=== PATIENT | male | born 1980 | race Caucasian/White ===

== ENCOUNTER 2022-06-29 19:57 | Inpatient (IN) | payer OTHER, MEDICAID, SELFPAY ==
[2022-06-29 20:24] VITALS: BP 141/91; PULSE 81; RESP 16; TEMP 37.1; O2SAT 97; BMI 37.3
[2022-06-29 21:00] LABS: Appearance Urine Clear; Color Urine Dark Yellow; Glucose Urine UA Negative (Negative); Leukocyte Esterase Urine Negative (Negative); Nitrite Urine Negative (Negative); PH 5.5 (5.0-9.0); Specific Gravity - Urine >= 1.030 (1.005-1.025); Urine Blood Negative (Negative); Urine Ketones Negative (Negative); Urine Protein Trace mg/dL (Neg-Trace)
[2022-06-29 21:10] LABS: Amphetamine Screen Urine Not Detected (Not Detect); Barbiturates, Urine Not Detected (Not Detect); Benzodiazepines Screen Urine Not Detected (Not Detect); Cannabinoid Screen Urine Not Detected (Not Detect); Cocaine Screen Urine Not Detected (Not Detect); Fentanyl, urine POSITIVE (Not Detect); Opiate Screen Urine Not Detected (Not Detect); Phencyclidine Screen Urine Not Detected (Not Detect)
[2022-06-29 21:15] LABS: COVID-19 Test Negative (Negative); IDNOW Serial# 55D5AD1C
--- NOTE | 2022-06-29 21:27 | ED.PSYCH ---
HPI - Psych General Chief Complaint: Psychiatric Symptoms Stated Complaint: drug use ?seeking rehab Time Seen by Provider: 06/29/22 20:50 Source: patient Mode of arrival: ambulatory Limitations: no limitations History of Present Illness HPI Narrative: 42-year-old male presents for psychiatric evaluation. Reports that he has been using large amounts of fentanyl, and feels like the next time he uses he is going to end his life. MD complaint: suicidal ideation, anxiety and substance abuse Onset (ago): month(s) Duration: constant History of same: Yes (First presentation to this facility) Relieving factors: none Exacerbating factors: drug use Context: recent drug abuse and significant life stressor Associated psychiatric symptoms: depression and suicidal ideation Treatments prior to arrival: none If self harm: admits thoughts of self harm and has plan Related Data Home Medications Medication Instructions Recorded Confirmed No Known Home Meds 06/29/22 06/29/22 Allergies Allergy/AdvReac Type Severity Reaction Status Date / Time No Known Allergies Allergy Verified 06/29/22 20:24 Review of Systems Review of Systems: Constitutional: No Fever, No Chills Cardiovascular: No Chest Pain, No SOB Respiratory: No Cough, No Sputum, No Dyspnea Gastrointestinal: No Nausea, No Vomiting, No Diarrhea Genitourinary: No Dysuria, No Urinary Frequency, No Hematuria Musculoskeletal: No Myalgias Skin: No Skin Lesions, No rash Neuro: No Weakness, No Numbness, No Paresthesias, No Dizziness, No Headache Psych: positive Anxiety, positive Depression, positive SI, positive substance abuse Heme/Lymph: No Lymphadenopathy Endocrine: No Polyuria, No Polydipsia Yes all other systems are reviewed and are negative [facility] Past Medical History Attestation statement: The following information was validated with the patient. Source: old records reviewed Social History Social History Advance Directives: No Advance Directives Information Provided: No Physical Exam Vital Signs: Vital Signs: Last Vital Signs Temp 98.8 F 06/29/22 20:24 Pulse 81 06/29/22 20:24 Resp 16 06/29/22 20:24 BP 141/91 H 06/29/22 20:24 Pulse Ox 97 06/29/22 20:24 O2 Del Method 06/29/22 20:24 BMI result Body Mass Index 37.3 Appearance: Alert. Oriented X3. Moderate emotional distress. Eyes: Pupils equal, round and reactive to light. Sclera nonicteric. Neck: Normal inspection. Neck supple. CVS: Normal heart rate and rhythm. Pulses normal. Respiratory: No respiratory distress. Breath sounds normal. Skin: Skin warm and dry. Normal skin color. Extremities: No lower extremity edema. Gait balance and coordinated. Neuro: No motor deficit. No sensory deficit. Cranial nerves 2-12 intact. Course Course Course Narrative: 42-year-old male presents for crisis evaluation for suicidal ideation with attempt to overdose on fentanyl. Over the past few months this patient has from his and children, has a job that requires him to travel, was on methadone but was in able to make it to the methadone clinics due to his occupation. Over the past 2 months he has been using fentanyl, and uses up to 2 g per day. He feels that his life situation is extraordinary softly stressful, he cannot manage his anxiety, states that he ?does not feel like a man?. Over the past 2 days, he has been living in a tent in shooting fentanyl, stating that he wishes he would . Patient feels that he is desperate, he is searching for help, he feels that if he were to use again that he would overdose. Will order labs, [facility], and place patient under section 12. 01:32 patient medically cleared. Order for Ativan for anxiety. Section 12, physician observation at this time. Medical Decision Making Differential Diagnosis Differential Diagnoses: The differential diagnosis associated with the presentation includes Suicidal, substance abuse, major depression Consult Healthcare Provider Management of the patient was discussed with: Behavioral Health Provider Lab Data MDM Lab Attestation statement: I reviewed the patient's lab results. 06/29/22 21:33 06/29/22 21:33 Labs: Lab Results 06/29/22 06/29/22 06/29/22 Range/Units 20:49 20:50 20:50 WBC (4.8-10.8) X10*3/uL RBC (4.60-5.80) X10*6/uL Hgb (14.0-18.0) g/dl Hct (42.0-52.0) % MCV (80.0-98.0) fL MCH (27.0-33.0) pg MCHC (31.0-36.0) g/dl RDW (11.0-16.0) % Plt Count (160-400) X10*3/uL MPV (9.4-12.4) fL Immature Gran % (Auto) (0.0-0.4) % Neut % (Auto) (45-73) % Lymph % (Auto) (20-40) % Sunflower % (Auto) (2-11) % Eos % (Auto) (0-4) % Baso % (Auto) (0-2) % Lymph # (Auto) (1.2-4.9) X10*3/uL Sunflower # (Auto) (0.1-1.2) X10*3/uL Eos # (Auto) (0.0-0.4) X10*3/uL Baso # (Auto) (0.0-0.2) X10*3/uL Abs Immat Gran (auto) (0.00-0.03) X10*3/uL Absolute Neuts (auto) (2.0-8.3) x10*3/uL Absolute Nucleated RBC (0.0-0.012) X10*3/uL Nucleated RBC % (auto) (0.0-0.2) /100WBC Sodium (135-145) mmol/L Potassium (3.3-5.1) mmol/L Chloride (96-108) mmol/L Carbon Dioxide (22-29) mmol/L Anion Gap (12-20) BUN (9-16) mg/dL Creatinine (0.5-1.4) mg/dL Estim Creat Clear Calc Estimated GFR Random Glucose (60-115) mg/dL Calcium (8.4-10.2) mg/dL Total Bilirubin (0.0-1.0) mg/dL AST (5-37) U/L ALT (0-40) U/L Alkaline Phosphatase (39-117) U/L Total Protein (6.5-8.0) g/dL Albumin (3.5-5.0) g/dL Urine Color Dark Yellow Urine Appearance Clear Urine pH 5.5 (5.0-9.0) Ur Specific [place] >= 1.030 H (1.005-1.025) Urine Protein Trace (Neg-Trace) mg/dL Urine Glucose (UA) Negative (Negative) mg/dL Urine Ketones Negative (Negative) mg/dL Urine Blood Negative (Negative) Urine Nitrite Negative (Negative) Ur Leukocyte Esterase Negative (Negative) Urine Opiates Screen Not Detected (Not Detect) Urine Fentanyl Screen POSITIVE H (Not Detect) Ur Barbiturates Screen Not Detected (Not Detect) Ur Phencyclidine Scrn Not Detected (Not Detect) Ur Amphetamines Screen Not Detected (Not Detect) U Benzodiazepines Scrn Not Detected (Not Detect) Urine Cocaine Screen Not Detected (Not Detect) U Marijuana (THC) Screen Not Detected (Not Detect) Ethyl Alcohol mg/dL COVID-19 ([facility]) Negative (Negative) COVID-19 Clin Com See Note 06/29/22 06/29/22 06/29/22 Range/Units 21:33 21:33 21:33 WBC 7.4 (4.8-10.8) X10*3/uL RBC 5.08 (4.60-5.80) X10*6/uL Hgb 14.3 (14.0-18.0) g/dl Hct 42.7 (42.0-52.0) % MCV 84.1 (80.0-98.0) fL MCH 28.1 (27.0-33.0) pg MCHC 33.5 (31.0-36.0) g/dl RDW 12.7 (11.0-16.0) % Plt Count 288 (160-400) X10*3/uL MPV 9.0 L (9.4-12.4) fL Immature Gran % (Auto) 0.1 (0.0-0.4) % Neut % (Auto) 64.8 (45-73) % Lymph % (Auto) 27.3 (20-40) % Sunflower % (Auto) 7.4 (2-11) % Eos % (Auto) 0.0 (0-4) % Baso % (Auto) 0.4 (0-2) % Lymph # (Auto) 2.0 (1.2-4.9) X10*3/uL Sunflower # (Auto) 0.6 (0.1-1.2) X10*3/uL Eos # (Auto) 0.0 (0.0-0.4) X10*3/uL Baso # (Auto) 0.0 (0.0-0.2) X10*3/uL Abs Immat Gran (auto) 0.01 (0.00-0.03) X10*3/uL Absolute Neuts (auto) 4.8 (2.0-8.3) x10*3/uL Absolute Nucleated RBC 0.000 (0.0-0.012) X10*3/uL Nucleated RBC % (auto) 0.0 (0.0-0.2) /100WBC Sodium 138 (135-145) mmol/L Potassium 3.9 (3.3-5.1) mmol/L Chloride 102 (96-108) mmol/L Carbon Dioxide 26 (22-29) mmol/L Anion Gap 14 (12-20) BUN 15 (9-16) mg/dL Creatinine 0.77 (0.5-1.4) mg/dL Estim Creat Clear Calc 159.3 Estimated GFR > 60 Random Glucose 132 H (60-115) mg/dL Calcium 9.2 (8.4-10.2) mg/dL Total Bilirubin 0.6 (0.0-1.0) mg/dL AST 33 (5-37) U/L ALT 33 (0-40) U/L Alkaline Phosphatase 105 (39-117) U/L Total Protein 7.0 (6.5-8.0) g/dL Albumin 4.4 (3.5-5.0) g/dL Urine Color Urine Appearance Urine pH (5.0-9.0) Ur Specific [place] (1.005-1.025) Urine Protein (Neg-Trace) mg/dL Urine Glucose (UA) (Negative) mg/dL Urine Ketones (Negative) mg/dL Urine Blood (Negative) Urine Nitrite (Negative) Ur Leukocyte Esterase (Negative) Urine Opiates Screen (Not Detect) Urine Fentanyl Screen (Not Detect) Ur Barbiturates Screen (Not Detect) Ur Phencyclidine Scrn (Not Detect) Ur Amphetamines Screen (Not Detect) U Benzodiazepines Scrn (Not Detect) Urine Cocaine Screen (Not Detect) U Marijuana (THC) Screen (Not Detect) Ethyl Alcohol < 10 mg/dL COVID-19 ([facility]) (Negative) COVID-19 Clin Com External Record Review Patient has no prior records at this facility Social Determinants Patient?s care significantly limited by Social Determinants of Health including: Other Social Determinant of Health Discharge Plan Discharge Clinical Impression: Fentanyl dependence, Depression, Suicidal intent Patient Disposition: Still a Patient Prescriptions: No Action No Known Home Meds
[2022-06-29 21:37] LABS: MANUAL DIFF FLAG NO
[2022-06-29 21:41] LABS: Basophils Percent Auto 0.4 % (0-2); Hematocrit 42.7 % (42.0-52.0); Hemoglobin 14.3 g/dl (14.0-18.0); Imm Gran Abs Auto 0.01 X10*3/uL (0.00-0.03); Imm Gran Pct Auto 0.1 % (0.0-0.4); Lymphocytes Percent Auto 27.3 % (20-40); Mean Corpuscular HGB Conc 33.5 g/dl (31.0-36.0); Mean Corpuscular Hemoglobin 28.1 pg (27.0-33.0); Mean Corpuscular Volume 84.1 fL (80.0-98.0); Monocytes Absolute Auto 0.6 X10*3/uL (0.1-1.2); Monocytes Percent Auto 7.4 % (2-11); Neutrophils Absolute Auto 4.8 x10*3/uL (2.0-8.3); Neutrophils Percent Auto 64.8 % (45-73); Platelet Count 288 X10*3/uL (160-400); Red Blood Count 5.08 X10*6/uL (4.60-5.80); Red Cell Distribution Width 12.7 % (11.0-16.0); White Blood Count 7.4 X10*3/uL (4.8-10.8)
[2022-06-29 22:03] LABS: Ethanol < 10 mg/dL
[2022-06-29 22:05] LABS: Alanine Aminotransferase 33 U/L (0-40); Albumin Level 4.4 g/dL (3.5-5.0); Alkaline Phosphatase 105 U/L (39-117); Anion Gap 14 (12-20); Aspartate Amino Transferase 33 U/L (5-37); Bilirubin Total 0.6 mg/dL (0.0-1.0); Blood Urea Nitrogen 15 mg/dL (9-16); Calcium 9.2 mg/dL (8.4-10.2); Carbon Dioxide 26 mmol/L (22-29); Chloride 102 mmol/L (96-108); Creatinine Clr Calc Pharmacy 159.3; Estimated Glomerular Filt Rate > 60; Glucose Random 132 mg/dL (60-115); Potassium 3.9 mmol/L (3.3-5.1); Sodium 138 mmol/L (135-145)
--- NOTE | 2022-06-30 05:34 | PC.NURSE ---
Patient slept through the night, no distress observed/reported, medication rec completed/patient is currently not on any home medication, behavior non concerning, care consult ordered/pending evaluation, VSS, will continue to monitor.
[2022-06-30 06:35] VITALS: BP 133/85; PULSE 82; RESP 17; TEMP 36.9; O2SAT 96
--- NOTE | 2022-06-30 07:29 | MHC.CARE ---
patient seen by Care team at 7am, he is an inpatient bed search. Agreeable/ voluntary for this LOC.
[2022-06-30] MEDS: LORazepam 1 MG TABLET PO (08:47)
[2022-06-30] MEDS: Ondansetron ODT 4 MG TAB.RAPDIS TRANSLINGU ×3 (08:47→22:30)
--- NOTE | 2022-06-30 09:00 | PC.NURSE ---
pt a+o x4, denies pain. pt requested meds for withdrawal symptoms. meds given as documented.
[2022-06-30] MEDS: LORazepam 1 MG TABLET 2 MG PO ×2 (16:58→22:30)
--- NOTE | 2022-06-30 17:01 | PC.NURSE ---
pt c/o nausea and bone pain, he denies any other symptoms of withdrawal. no signs of withdrawal observed. meds given as documented. pt sleeping most of shift. no other complaints.
--- NOTE | 2022-06-30 22:37 | PC.NURSE ---
Patient is awake, alert and oriented x3. VSS. Patient complains of nausea and generalized bone pain, no other signs and symptoms of withdrawal noted. Patient requesting to be medicated for nausea and pain. Dr. Felix notified, per MD MITCHELL to medicated patient with Zofran and Lorazepam 20 min earlier scheduled dose.
[2022-06-30 22:47] VITALS: BP 137/84; PULSE 96; RESP 18; TEMP 36.8; O2SAT 94
--- NOTE | 2022-07-01 | ECG_ITS ---
Test Reason : QTC CHECK Blood Pressure : / mmHG Vent. Rate : 092 BPM Atrial Rate : 092 BPM P-R Int : 146 ms QRS Dur : 100 ms QT Int : 366 ms P-R-T Axes : 023 -21 008 degrees QTc Int : 452 ms Normal sinus rhythm Normal ECG No previous ECGs available Referred By: Luz Mcwilliams Electronically Signed By:PACHECO HAYES
--- NOTE | 2022-07-01 00:33 | PC.NURSE ---
Patient continues to c/o bone pain and restless feeling, unable to keep his eyes closed and relax. Matt Cameron ED provider notified, verbal order obtained for Zyprexa 10 mg PO once.
[2022-07-01] MEDS: OLANZapine 10 MG TABLET PO (00:37)
[2022-07-01 00:40] VITALS: BP 137/87; PULSE 97; RESP 17; TEMP 36.4; O2SAT 96
[2022-07-01] MEDS: methADONE HCl 20 MG/2 ML ORAL.CONC 30 MG PO (01:23)
--- NOTE | 2022-07-01 07:31 | PC.NURSE ---
Patient sleeping no distress noted remains watch for safety.
[2022-07-01] MEDS: LORazepam 1 MG TABLET 2 MG PO ×3 (10:30→22:10)
--- NOTE | 2022-07-01 10:51 | PC.NURSE ---
Patient showering will CTM
[2022-07-01 13:52] VITALS: BP 115/74; PULSE 105; RESP 18; TEMP 37.1; O2SAT 98
--- NOTE | 2022-07-01 13:58 | PC.NURSE ---
Report to Chelsea collins RN
--- NOTE | 2022-07-01 15:14 | PHA.MEDREC ---
Pharmacy Consult ? Medication Reconciliation Pharmacy has completed the medication reconciliation. Pharmacy has reviewed med rec done by [facility]
[2022-07-01 16:00] VITALS: PULSE 98
[2022-07-01] MEDS: Acetaminophen 325 MG TABLET 650 MG PO (17:22)
[2022-07-01] MEDS: Ondansetron ODT 4 MG TAB.RAPDIS TRANSLINGU (17:22)
[2022-07-01 18:00] VITALS: BP 110/64; PULSE 98; TEMP 37.1; O2SAT 98
--- NOTE | 2022-07-01 19:08 | PC.ADMIT ---
pt is a 42 year old male who presented to the ED with SI due to wanting to overdose with fentanyl. pt had a positive tox screen for fentanyl. during admission, pt report withdrawal symptoms including nausea, rigors, sweating, body aches and nose dripping. pt was able to finish admission and got withdrawal meds including lorazepam, tylenol and zofran for nausea. pt is currently sleeping and he wants an addiction consult. start treatment plan and promote safety
--- NOTE | 2022-07-01 19:13 | PC.NURSE ---
pt refused nicotine replacement and says he didn't need it. pt was informed he can change his choice if he needs it.
[2022-07-01] MEDS: traZODone HCL 50 MG TABLET PO (22:10)
[2022-07-01] MEDS: cloNIDine HCL 0.1 MG TABLET PO (22:10)
[2022-07-02 08:20] VITALS: BP 118/78; PULSE 94; RESP 17; TEMP 36.7; O2SAT 97
[2022-07-02 08:22] VITALS: PULSE 94
[2022-07-02 09:13] LABS: Estimated Average Glucose 120 mg/dL; Hemoglobin A1c % 5.8 %
[2022-07-02 09:46] LABS: Cholesterol 196 mg/dL; HDL Cholesterol 29 mg/dL; LDL Cholesterol Calculated 135 mg/dl; Magnesium 2.2 mg/dL (1.6-2.6); Triglycerides 162 mg/dL
[2022-07-02 10:08] LABS: Folate 16.7 ng/mL (> or = 4.0); Free T4 (Free Thyroxine) 0.81 ng/dL (0.71-1.85); Thyroid Stimulating Hormone 1.06 uIU/mL (0.32-4.0); Vitamin B12 473 pg/mL (200-900)
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
[2022-07-02] MEDS: methADONE HCl 20 MG/2 ML ORAL.CONC 40 MG PO (10:39)
--- NOTE | 2022-07-02 14:58 | HO.ADDICT_ITS ---
History of Present Illness Date of Service: 07/02/2022 Chief Complaint: major depression w SI; Opiate use disorder Reason for Consult: fentanyl use HPI Narrative: Patient is a 42 year old male currently admitted to unit with suicidal id eation. Patient reports he has been staying in a tent for some time and using fentanyl daily. He is from [place], but reports he came up here about 2 weeks ago to use drugs. He received methadone 30mg while in ED, and 40mg was ordered today to address COWS score of 15. Patient seen by this video games storywriter following methadone administration. He was laying in bed, curled up under blanket. Frequently shifting during interview. He reports he was previously engaged with [facility] in [place] and dose was 120mg. Due to work demands, he was unable to make it to the clinic daily--unclear when his last dose was. Discussed methadone dosing and patients goals regarding continuation of medication--patient somewhat hesitant to continue titrating dose-- my head is a mess, I can't think straight . He is reporting continued withdrawal sx, including anxiety, joint pain, restlessness. Encouraged patient to address withdrawal sx in order to be able to address significant depression that brought his to [facility]--then plan could be developed regarding continuation or taper of methadone. Patient agreeable. Review of Systems Constitutional: Reports as per HPI, Reports body ache(s), Reports difficulty sleeping and Reports malaise Diagnostics Vital Signs (24Hr): Vital Signs - 24 hr 07/01/22 18:00 07/02/22 08:20 Temperature 98.8 F 98.0 F Pulse Rate 98 94 Respiratory Rate 17 Blood Pressure 110/64 118/78 Pulse Oximetry 98 97 Oxygen Delivery Method Room Air Room Air BMI result Body Mass Index 37.3 Labs 06/29/22 21:33 06/29/22 21:33 Labs: Laboratory Results - last 48 hr 07/02/22 07/02/22 08:16 08:16 Estimat Average Glucose 120 Hemoglobin A1c % 5.8 Magnesium 2.2 Triglycerides 162 Cholesterol 196 LDL Cholesterol, Calc 135 HDL Cholesterol 29 Vitamin B12 473 Folate 16.7 TSH 1.06 Free T4 0.81 Mental Status Exam Mental Status Exam Patient Appearance: Disheveled Level of Consciousness: Awake and Appropriate Affect Description: Anxious Speech Pattern: Clear Medications Medications Current Medications Acetaminophen (Acetaminophen 325 Mg Tablet) 650 mg PO Q6H PRN PRN Reason: Headache/Pain Mild Scale (1-3) Last Admin: 07/01/22 17:22 Dose: 650 mg Al Hydroxide/Mg Hydroxide (Magnesium Hydrox/Alum Hydrox 30 Ml Oral.Susp) 30 ml PO Q6H PRN PRN Reason: Heartburn/Nausea Clonidine HCl (Clonidine Hcl 0.1 Mg Tablet) 0.1 mg PO TID PRN; Protocol PRN Reason: withdrawal Last Admin: 07/01/22 22:10 Dose: 0.1 mg Hydroxyzine HCl (Hydroxyzine Hcl 25 Mg Tablet) 25 mg PO Q6H PRN PRN Reason: Anxiety Lorazepam (Lorazepam 1 Mg Tablet) 2 mg PO Q6H PRN PRN Reason: anxiety/restlessness Last Admin: 07/01/22 22:10 Dose: 2 mg Magnesium Hydroxide (Milk Of Magnesia 30 Ml Oral.Susp) 30 ml PO DAILY PRN PRN Reason: Constipation Methadone HCl (Methadone Hcl 20 Mg/2 Ml Oral.Conc) 50 mg PO DAILY DAKSHA Ondansetron HCl (Ondansetron Odt 4 Mg Tab.Rapdis) 4 mg TRANSLINGU Q6H PRN PRN Reason: nausea/vomiting Last Admin: 07/01/22 17:22 Dose: 4 mg Trazodone HCl (Trazodone Hcl 50 Mg Tablet) 50 mg PO BEDTIME MRX1 PRN PRN Reason: Insomnia Last Admin: 07/01/22 22:10 Dose: 50 mg Allergies Allergies Allergy/AdvReac Type Severity Reaction Status Date / Time No Known Allergies Allergy Verified 06/29/22 20:24 Assessment & Plan Assessment & Plan (1) Opioid use disorder: Status: Acute Code(s): F11.90 - Opioid use, unspecified, uncomplicated Assessment and Plan: * continue methadone titration--50mg ordered for 07/03 * offer comfort medications * nicotine patch ordered as patient reported smoking more than one pack daily * HIV and hepatitis screening * will continue to follow and obtain additional substance use and treatment history once patient is feeling better. Total time managing care of this patient today __35__ minutes. [facility] Social History Social History Housing: Homeless Patient Tobacco Use Status: Current everyday Tobacco user Tobacco use type: Cigarette Cigarettes Per Day: 6 Years Smoked: 10 Smoked in Last 30 Days: Yes Patient Interested in Nicotine Replacement: No (pt is not interested in replacement) Patient Given Instructions on How to Stop Smoking: Yes Date Education Initiated: 07/01/22 Second Hand Smoke Exposure: No Use of substances other than those prescribed or required for medical reasons: Yes Substance Use Type: Opiates Substance Use Frequency: Chronic Longstanding Last Used Substance: Just Prior to Admission Currently Displaying Signs/Symptoms of Drug Intoxication Withdrawal: Yes Any prior treatment program specific to substance use: No Have you been hit, kicked, punched, or otherwise hurt by someone within the past year? If so, by whom?: No Do you feel safe in your current relationship?: No Current Relationship Is there a partner from a previous relationship who is making you feel unsafe now?: No Are you made to feel afraid or neglected: No Advance Directives: No Advance Directives Information Provided: No Healthcare Proxy: No Guardian: No Do you have thoughts of harming others: None Do you have a plan to hurt others: No Plan Recently lost weight without trying: No How much weight loss: Not applicable Eating poorly because of decreased appetite: No Nutrition screen score: 0 Poor oral hygiene: No
[2022-07-02 16:00] VITALS: PULSE 86
[2022-07-02] MEDS: Nicotine 21 MG PATCH.TD24 TRANSDERMA (16:03)
[2022-07-02] MEDS: FLUoxetine HCl 10 MG CAPSULE PO (16:04)
[2022-07-02] MEDS: Acetaminophen 325 MG TABLET 650 MG PO (17:13)
[2022-07-02 18:00] VITALS: BP 114/68; PULSE 86; TEMP 36.7; O2SAT 99
[2022-07-02] MEDS: cloNIDine HCL 0.1 MG TABLET PO (19:59)
[2022-07-02] MEDS: traZODone HCL 50 MG TABLET PO (19:59)
[2022-07-02] MEDS: hydrOXYzine HCL 25 MG TABLET PO (19:59)
[2022-07-03] VITALS: PULSE 78
[2022-07-03] MEDS: cloNIDine HCL 0.1 MG TABLET PO (04:15)
[2022-07-03 04:20] VITALS: BP 105/60; PULSE 78; RESP 16
[2022-07-03] MEDS: FLUoxetine HCl 10 MG CAPSULE PO (08:42)
[2022-07-03] MEDS: methADONE HCl 20 MG/2 ML ORAL.CONC 50 MG PO (08:42)
[2022-07-03] MEDS: Nicotine 21 MG PATCH.TD24 TRANSDERMA (08:43)
[2022-07-03] MEDS: hydrOXYzine HCL 25 MG TABLET PO ×2 (08:49→18:59)
[2022-07-03 09:07] VITALS: BP 128/94; PULSE 91; RESP 18; TEMP 37.1; O2SAT 98
[2022-07-03 09:08] VITALS: PULSE 91
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
--- NOTE | 2022-07-03 16:02 | P.PNADD_ITS ---
Subjective Subjective Date of Service: 07/03/22 Reason For Visit: major depression w SI; Opiate use disorder Interim History: Patient seen in follow up Out of bed, showered and reporting improvement in withdrawal sx. Still c/o body aches and chills. Discussed OUD treatment history and patient reports that he had been in recovery for about 4 years while consistently taking methadone. His dose was 135mg QD. He states that about 2 months ago, he started to take Kratom as a way to taper off of methadone due to challenges with getting there daily. Unclear how, but at some point he began using fentanyl and then use increased. His last dose at the [facility] (per his report) was about a month ago 30mg. He would like to continue titrating dose and acknowledged that methadone was instrumental in his recovery previously. Review of Systems Constitutional: Reports as per HPI Mental Status Exam Mental Status Exam Patient Appearance: Well Grooomed and Appropriate Patient Orientation: Person, Place, Time and Situation Level of Consciousness: Awake, Appropriate and Alert Patient Behavior: Appropriate and Cooperative Mood Description: Calm and Appropriate Diagnostics Vital Signs (24Hr): Vital Signs - 24 hr 07/02/22 18:00 07/03/22 04:20 07/03/22 09:07 Temperature 98.1 F 98.8 F Pulse Rate 86 78 91 Respiratory Rate 16 18 Blood Pressure 114/68 105/60 128/94 H Pulse Oximetry 99 98 Oxygen Delivery Method Room Air Room Air BMI result Body Mass Index 37.3 Labs 06/29/22 21:33 06/29/22 21:33 Labs: Laboratory Results - last 48 hr 07/02/22 07/02/22 08:16 08:16 Estimat Average Glucose 120 Hemoglobin A1c % 5.8 Magnesium 2.2 Triglycerides 162 Cholesterol 196 LDL Cholesterol, Calc 135 HDL Cholesterol 29 Vitamin B12 473 Folate 16.7 TSH 1.06 Free T4 0.81 Medications Medications Current Medications Acetaminophen (Acetaminophen 325 Mg Tablet) 650 mg PO Q6H PRN PRN Reason: Headache/Pain Mild Scale (1-3) Last Admin: 07/02/22 17:13 Dose: 650 mg Al Hydroxide/Mg Hydroxide (Magnesium Hydrox/Alum Hydrox 30 Ml Oral.Susp) 30 ml PO Q6H PRN PRN Reason: Heartburn/Nausea Clonidine HCl (Clonidine Hcl 0.1 Mg Tablet) 0.1 mg PO QID PRN; Protocol PRN Reason: anxiety/insomnia Cyclobenzaprine HCl (Cyclobenzaprine Hcl 10 Mg Tablet) 10 mg PO TID PRN PRN Reason: muscle aches Dicyclomine HCl (Dicyclomine Hcl 10 Mg Capsule) 10 mg PO Q6H PRN PRN Reason: stomach cramps Fluoxetine HCl (Fluoxetine Hcl 10 Mg Capsule) 10 mg PO DAILY [facility] Last Admin: 07/03/22 08:42 Dose: 10 mg Hydroxyzine HCl (Hydroxyzine Hcl 25 Mg Tablet) 25 mg PO Q6H PRN PRN Reason: Anxiety Last Admin: 07/03/22 08:49 Dose: 25 mg Magnesium Hydroxide (Milk Of Magnesia 30 Ml Oral.Susp) 30 ml PO DAILY PRN PRN Reason: Constipation Methadone HCl (Methadone Hcl 20 Mg/2 Ml Oral.Conc) 60 mg PO DAILY [facility] Nicotine (Nicotine 21 Mg Patch.Td24) 21 mg TRANSDERMA DAILY [facility] Last Admin: 07/03/22 08:43 Dose: 21 mg Ondansetron HCl (Ondansetron Odt 4 Mg Tab.Rapdis) 4 mg TRANSLINGU Q6H PRN PRN Reason: nausea/vomiting Last Admin: 07/01/22 17:22 Dose: 4 mg Trazodone HCl (Trazodone Hcl 50 Mg Tablet) 50 mg PO BEDTIME MRX1 PRN PRN Reason: Insomnia Last Admin: 07/02/22 19:59 Dose: 50 mg Allergies Allergies Allergy/AdvReac Type Severity Reaction Status Date / Time No Known Allergies Allergy Verified 06/29/22 20:24 Assessment & Plan Assessment & Plan (1) Opioid use disorder: Status: Acute Code(s): F11.90 - Opioid use, unspecified, uncomplicated Assessment and Plan: * reminded to utilize PRN comfort medications * methadone increased to 60mg tomorrow AM (07/04) Total time managing care of this patient today _25___ minutes.
[2022-07-03 18:55] VITALS: BP 132/73; PULSE 91; TEMP 35.9; O2SAT 99
[2022-07-04 03:10] VITALS: BP 106/68; PULSE 68; RESP 14; TEMP 36.6
[2022-07-04] MEDS: cloNIDine HCL 0.1 MG TABLET PO ×3 (03:13→20:09)
[2022-07-04 08:00] VITALS: PULSE 82
[2022-07-04] MEDS: Nicotine 21 MG PATCH.TD24 TRANSDERMA (08:55)
[2022-07-04] MEDS: methADONE HCl 20 MG/2 ML ORAL.CONC 60 MG PO (08:56)
[2022-07-04] MEDS: FLUoxetine HCl 10 MG CAPSULE PO (08:56)
[2022-07-04 09:01] VITALS: BP 119/68; PULSE 82; RESP 18; TEMP 36.1; O2SAT 99; BMI 34.4
--- NOTE | 2022-07-04 12:20 | HO.PSYCHPN ---
Subjective Subjective Date of Service: 07/04/22 Reason For Visit: major depression w SI; Opiate use disorder Interim History: Met with patient; discussed with team; met again later with social science manager still depressed but a little better; some passive SI but not active; worries about relapse. Still some w/drawal but not as bad; agrees to scheduling clonidine. Discussed dispo and pt is determined to stay in [place], hopefully to go to a [facility]. Mental Status Exam Mental Status Exam Narrative: Pt is alert and oriented; behavior is cooperative, calm; patient is not in distress; dressed in casual attire, clean shaven, adequate hygiene; tatooed arms; mood is described as depressed...little better and affect congruent, more engaged; eye contact appropriate; Speech is normal rate, volume and prosody and not pressured; no psychomotor retardation present; thought process is organized and goal directed; Thought content is more hopeful, worried about relapse; tx; otherwise pertinent to relevant topics and without any delusional content, paranoid ideations or grandiosity; passive SI; no HI. There is no evidence of perceptual disturbance; denies AVH. Patients insight and judgment are fair. Diagnostics Vital Signs (24Hr): Vital Signs - 24 hr 07/03/22 18:55 07/04/22 03:10 07/04/22 09:01 Temperature 96.7 F L 98 F 97 F Pulse Rate 91 68 82 Respiratory Rate 14 18 Blood Pressure 132/73 106/68 119/68 Pulse Oximetry 99 99 Oxygen Delivery Method Room Air Room Air BMI result Body Mass Index 34.4 Labs 06/29/22 21:33 06/29/22 21:33 Medications Medications Current Medications Acetaminophen (Acetaminophen 325 Mg Tablet) 650 mg PO Q6H PRN PRN Reason: Headache/Pain Mild Scale (1-3) Last Admin: 07/02/22 17:13 Dose: 650 mg Al Hydroxide/Mg Hydroxide (Magnesium Hydrox/Alum Hydrox 30 Ml Oral.Susp) 30 ml PO Q6H PRN PRN Reason: Heartburn/Nausea Clonidine HCl (Clonidine Hcl 0.1 Mg Tablet) 0.1 mg PO QID PRN; Protocol PRN Reason: anxiety/insomnia Last Admin: 07/04/22 03:13 Dose: 0.1 mg Cyclobenzaprine HCl (Cyclobenzaprine Hcl 10 Mg Tablet) 10 mg PO TID PRN PRN Reason: muscle aches Dicyclomine HCl (Dicyclomine Hcl 10 Mg Capsule) 10 mg PO Q6H PRN PRN Reason: stomach cramps Fluoxetine HCl (Fluoxetine Hcl 10 Mg Capsule) 10 mg PO DAILY [facility] Last Admin: 07/04/22 08:56 Dose: 10 mg Hydroxyzine HCl (Hydroxyzine Hcl 25 Mg Tablet) 25 mg PO Q6H PRN PRN Reason: Anxiety Last Admin: 07/03/22 18:59 Dose: 25 mg Magnesium Hydroxide (Milk Of Magnesia 30 Ml Oral.Susp) 30 ml PO DAILY PRN PRN Reason: Constipation Methadone HCl (Methadone Hcl 20 Mg/2 Ml Oral.Conc) 60 mg PO DAILY [facility] Last Admin: 07/04/22 08:56 Dose: 60 mg Nicotine (Nicotine 21 Mg Patch.Td24) 21 mg TRANSDERMA DAILY [facility] Last Admin: 07/04/22 08:55 Dose: 21 mg Ondansetron HCl (Ondansetron Odt 4 Mg Tab.Rapdis) 4 mg TRANSLINGU Q6H PRN PRN Reason: nausea/vomiting Last Admin: 07/01/22 17:22 Dose: 4 mg Trazodone HCl (Trazodone Hcl 50 Mg Tablet) 50 mg PO BEDTIME MRX1 PRN PRN Reason: Insomnia Last Admin: 07/02/22 19:59 Dose: 50 mg Allergies Allergies Allergy/AdvReac Type Severity Reaction Status Date / Time No Known Allergies Allergy Verified 06/29/22 20:24 Assessment & Plan Assessment & Plan (1) Opioid use disorder: Status: Acute Code(s): F11.90 - Opioid use, unspecified, uncomplicated Assessment and Plan: reminded to utilize PRN comfort medications methadone increased to 60mg tomorrow AM (07/04) (2) MDD (major depressive disorder), recurrent episode, moderate: Status: Acute Code(s): F33.1 - Major depressive disorder, recurrent, moderate (3) PTSD (post-traumatic stress disorder): Status: Acute Code(s): F43.10 - Post-traumatic stress disorder, unspecified (4) Opioid dependence: Status: Acute Code(s): F11.20 - Opioid dependence, uncomplicated Plan Patient is a 42-year-old male with history of depression, PTSD opioid abuse presents with depression and SI in the face of relational strife and homelessness. -long history of trauma, complicated by long history of substance abuse and untreated depression and PTSD. Will admit for medication management safety 07/03 still depressed with passive SI but feeling better; still having withdrawal symptoms but will help mitigate with comfort medications; patient more engaged and working to figure out aftercare. 07/04 slowly improving Plan: CV Q 15 minute checks started clonidine 0.2mg at 1500 and 2100 Continue Prozac 10 mg daily for PTSD/depression (com writer reviewed risks/side effects which patient understood) Methadone 60 mg; will likely titrate further; Patient educated on: diagnosis, medication risk/benefits, substance abuse and therapeutic strategies Informed Consent: understands Reason for contiued inpatient stay Substantial Risk for: rapid decompensation Time Spent With Patient Time: Total time managing care of this patient today ____ minutes.
[2022-07-04 14:52] VITALS: BP 132/73; PULSE 91
[2022-07-04 16:00] VITALS: PULSE 94
[2022-07-04 18:00] VITALS: BP 116/54; PULSE 81; RESP 16; TEMP 36.3; O2SAT 98
[2022-07-05 06:00] VITALS: BP 123/70; PULSE 83; RESP 14; O2SAT 98
[2022-07-05] MEDS: methADONE HCl 20 MG/2 ML ORAL.CONC 60 MG PO (08:40)
[2022-07-05] MEDS: FLUoxetine HCl 10 MG CAPSULE PO (08:40)
[2022-07-05] MEDS: Nicotine 21 MG PATCH.TD24 TRANSDERMA (08:41)
[2022-07-05 10:28] VITALS: PULSE 82
--- NOTE | 2022-07-05 11:58 | P.PNPSI_ITS ---
Subjective Subjective Date of Service: 07/05/22 Reason For Visit: major depression w SI; Opiate use disorder Interim History: Met with patient; discussed in teams Patient reports that he is doing better. He says he is not sure if it is the withdrawal that is lessening over the Proza that is working but he is getting more hopeful. Would like to leave [facility] worried is for now. Hopeful about getting into a program; would like methadone titrated to 95 mg if possible but accepts that what ever chief writer thinks is best. Agrees to adding 5 mg q.h.s. tonight Mental Status Exam Mental Status Exam Narrative: Pt is alert and oriented; behavior is cooperative, calm; patient is not in distress; dressed in casual attire, clean shaven, adequate hygiene; tatooed arms; mood is described as little better and affect congruent, more engaged; eye contact appropriate; Speech is normal rate, volume and prosody and not pressured; no psychomotor retardation present; thought process is organized and goal directed; Thought content is more hopeful, worried about relapse; tx; otherwise pertinent to relevant topics and without any delusional content, paranoid ideations or grandiosity; no SI; no HI. There is no evidence of perceptual disturbance; denies AVH. Patients insight and judgment are fair. Diagnostics Vital Signs (24Hr): Vital Signs - 24 hr 07/04/22 14:52 07/04/22 18:00 07/05/22 06:00 Temperature 97.4 F Pulse Rate 91 81 83 Respiratory Rate 16 14 Blood Pressure 132/73 116/54 L 123/70 Pulse Oximetry 98 98 Oxygen Delivery Method Room Air Room Air BMI result Body Mass Index 34.4 Labs 06/29/22 21:33 06/29/22 21:33 Medications Medications Current Medications Acetaminophen (Acetaminophen 325 Mg Tablet) 650 mg PO Q6H PRN PRN Reason: Headache/Pain Mild Scale (1-3) Last Admin: 07/02/22 17:13 Dose: 650 mg Al Hydroxide/Mg Hydroxide (Magnesium Hydrox/Alum Hydrox 30 Ml Oral.Susp) 30 ml PO Q6H PRN PRN Reason: Heartburn/Nausea Clonidine HCl (Clonidine Hcl 0.1 Mg Tablet) 0.1 mg PO QID PRN; Protocol PRN Reason: anxiety/insomnia Last Admin: 07/04/22 03:13 Dose: 0.1 mg Clonidine HCl (Clonidine Hcl 0.1 Mg Tablet) 0.1 mg PO BEDTIME [facility]; Protocol Last Admin: 07/04/22 20:09 Dose: 0.1 mg Clonidine HCl (Clonidine Hcl 0.1 Mg Tablet) 0.1 mg PO DAILY@1500 [facility]; Protocol Last Admin: 07/04/22 14:51 Dose: 0.1 mg Cyclobenzaprine HCl (Cyclobenzaprine Hcl 10 Mg Tablet) 10 mg PO TID PRN PRN Reason: muscle aches Dicyclomine HCl (Dicyclomine Hcl 10 Mg Capsule) 10 mg PO Q6H PRN PRN Reason: stomach cramps Fluoxetine HCl (Fluoxetine Hcl 10 Mg Capsule) 10 mg PO DAILY [facility] Last Admin: 07/05/22 08:40 Dose: 10 mg Hydroxyzine HCl (Hydroxyzine Hcl 25 Mg Tablet) 25 mg PO Q6H PRN PRN Reason: Anxiety Last Admin: 07/03/22 18:59 Dose: 25 mg Magnesium Hydroxide (Milk Of Magnesia 30 Ml Oral.Susp) 30 ml PO DAILY PRN PRN Reason: Constipation Methadone HCl (Methadone Hcl 20 Mg/2 Ml Oral.Conc) 60 mg PO DAILY [facility] Last Admin: 07/05/22 08:40 Dose: 60 mg Nicotine (Nicotine 21 Mg Patch.Td24) 21 mg TRANSDERMA DAILY [facility] Last Admin: 07/05/22 08:41 Dose: 21 mg Ondansetron HCl (Ondansetron Odt 4 Mg Tab.Rapdis) 4 mg TRANSLINGU Q6H PRN PRN Reason: nausea/vomiting Last Admin: 07/01/22 17:22 Dose: 4 mg Trazodone HCl (Trazodone Hcl 50 Mg Tablet) 50 mg PO BEDTIME MRX1 PRN PRN Reason: Insomnia Last Admin: 07/02/22 19:59 Dose: 50 mg Allergies Allergies Allergy/AdvReac Type Severity Reaction Status Date / Time No Known Allergies Allergy Verified 06/29/22 20:24 Assessment & Plan Assessment & Plan (1) Opioid use disorder: Status: Acute Code(s): F11.90 - Opioid use, unspecified, uncomplicated Assessment and Plan: * reminded to utilize PRN comfort medications * methadone increased to 60mg tomorrow AM (07/04) (2) MDD (major depressive disorder), recurrent episode, moderate: Status: Acute Code(s): F33.1 - Major depressive disorder, recurrent, moderate (3) PTSD (post-traumatic stress disorder): Status: Acute Code(s): F43.10 - Post-traumatic stress disorder, unspecified (4) Opioid dependence: Status: Acute Code(s): F11.20 - Opioid dependence, uncomplicated Plan Patient is a 42-year-old male with history of depression, PTSD opioid abuse presents with depression and SI in the face of relational strife and homelessness. -long history of trauma, complicated by long history of substance abuse and untreated depression and PTSD. Will admit for medication management safety 07/03 still depressed with passive SI but feeling better; still having withdrawal symptoms but will help mitigate with comfort medications; patient more engaged and working to figure out aftercare. 07/04 slowly improving 07/05 patient doing better; depression starting to sonya; no SI; would like to leave Prozac rate is but hopes for increased methadone; discussed case with Carmen Morse addiction partner management consultant who advised getting patient around 75 mg and then letting outpatient providers resume titration Plan: CV Q 15 minute checks Continue clonidine 0.2mg at 1500 and 2100 Continue Prozac 10 mg daily for PTSD/depression (chief writer reviewed risks/side effects which patient understood) Methadone 60 mg; will likely titrate further to around 75 mg Added methadone 5 mg q.h.s. Patient educated on: diagnosis, medication risk/benefits and substance abuse Informed Consent: understands Reason for contiued inpatient stay Substantial Risk for: rapid decompensation Time Spent With Patient Time: Total time managing care of this patient today ____ minutes.
[2022-07-05] MEDS: cloNIDine HCL 0.1 MG TABLET PO ×2 (14:04→20:11)
[2022-07-05 14:05] VITALS: BP 126/64; PULSE 85
[2022-07-05] MEDS: traZODone HCL 50 MG TABLET PO (20:11)
[2022-07-05] MEDS: hydrOXYzine HCL 25 MG TABLET PO (20:11)
[2022-07-05] MEDS: methADONE HCl 20 MG/2 ML ORAL.CONC 5 MG PO (20:11)
[2022-07-05 20:14] VITALS: BP 131/76; PULSE 77
--- NOTE | 2022-07-06 | ECG_ITS ---
Test Reason : cp Blood Pressure : / mmHG Vent. Rate : 067 BPM Atrial Rate : 067 BPM P-R Int : 158 ms QRS Dur : 096 ms QT Int : 394 ms P-R-T Axes : 042 058 012 degrees QTc Int : 416 ms Normal sinus rhythm Normal ECG When compared with ECG of 02-JUL-2022 09:17, Questionable change in QRS axis Referred By: Cassius Pablo Electronically Signed By:Joey Hernández
[2022-07-06] MEDS: FLUoxetine HCl 10 MG CAPSULE PO (07:54)
[2022-07-06] MEDS: Nicotine 21 MG PATCH.TD24 TRANSDERMA (07:54)
[2022-07-06] MEDS: methADONE HCl 20 MG/2 ML ORAL.CONC 60 MG PO (07:54)
[2022-07-06 07:57] VITALS: BP 122/77; PULSE 78; RESP 18; TEMP 36.2; O2SAT 99
[2022-07-06 08:00] VITALS: PULSE 78
--- NOTE | 2022-07-06 10:04 | P.PNPSI_ITS ---
Subjective Subjective Date of Service: 07/06/22 Reason For Visit: major depression w SI; Opiate use disorder Interim History: met w/ patient; discussed with nursing; reviewed chart; ordered and reviewed ekg pt reports his mood remains a little better, though still depressed; still feels very anxious and not sure if w/drawal or otherwise; despite being normally averse to meds, he's considering continued med management for anxiety; he will continue thinking about it. Pt agrees to titration of methadone. Otherwise patient is working on coping skills, attending groups, appropriate with peers and staff. Mental Status Exam Mental Status Exam Narrative: Pt is alert and oriented; behavior is cooperative, anxious; patient is not in distress; dressed in casual attire, clean shaven, adequate hygiene; tatooed arms; mood is described as anxious and affect congruent, more engaged; eye contact appropriate; Speech is normal rate, volume and prosody and not pressured; no psychomotor retardation present; thought process is organized and goal directed; Thought content is more hopeful, worried about relapse; tx; otherwise pertinent to relevant topics and without any delusional content, paranoid ideations or grandiosity; no SI; no HI. There is no evidence of perceptual disturbance; denies AVH. Patients insight and judgment are fair. Diagnostics Vital Signs (24Hr): Vital Signs - 24 hr 07/05/22 14:05 07/05/22 20:14 07/06/22 07:57 Temperature 97.1 F Pulse Rate 85 77 78 Respiratory Rate 18 Blood Pressure 126/64 131/76 122/77 Pulse Oximetry 99 Oxygen Delivery Method Room Air BMI result Body Mass Index 34.4 Labs 06/29/22 21:33 06/29/22 21:33 Medications Medications Current Medications Acetaminophen (Acetaminophen 325 Mg Tablet) 650 mg PO Q6H PRN PRN Reason: Headache/Pain Mild Scale (1-3) Last Admin: 07/02/22 17:13 Dose: 650 mg Al Hydroxide/Mg Hydroxide (Magnesium Hydrox/Alum Hydrox 30 Ml Oral.Susp) 30 ml PO Q6H PRN PRN Reason: Heartburn/Nausea Clonidine HCl (Clonidine Hcl 0.1 Mg Tablet) 0.1 mg PO QID PRN; Protocol PRN Reason: anxiety/insomnia Last Admin: 07/04/22 03:13 Dose: 0.1 mg Clonidine HCl (Clonidine Hcl 0.1 Mg Tablet) 0.1 mg PO BEDTIME [facility]; Protocol Last Admin: 07/05/22 20:11 Dose: 0.1 mg Clonidine HCl (Clonidine Hcl 0.1 Mg Tablet) 0.1 mg PO DAILY@1500 [facility]; Protocol Last Admin: 07/05/22 14:04 Dose: 0.1 mg Cyclobenzaprine HCl (Cyclobenzaprine Hcl 10 Mg Tablet) 10 mg PO TID PRN PRN Reason: muscle aches Dicyclomine HCl (Dicyclomine Hcl 10 Mg Capsule) 10 mg PO Q6H PRN PRN Reason: stomach cramps Fluoxetine HCl (Fluoxetine Hcl 10 Mg Capsule) 10 mg PO DAILY [facility] Last Admin: 07/06/22 07:54 Dose: 10 mg Hydroxyzine HCl (Hydroxyzine Hcl 25 Mg Tablet) 25 mg PO Q6H PRN PRN Reason: Anxiety Last Admin: 07/05/22 20:11 Dose: 25 mg Magnesium Hydroxide (Milk Of Magnesia 30 Ml Oral.Susp) 30 ml PO DAILY PRN PRN Reason: Constipation Methadone HCl (Methadone Hcl 20 Mg/2 Ml Oral.Conc) 60 mg PO DAILY [facility] Last Admin: 07/06/22 07:54 Dose: 60 mg Methadone HCl (Methadone Hcl 20 Mg/2 Ml Oral.Conc) 5 mg PO BEDTIME [facility] Last Admin: 07/05/22 20:11 Dose: 5 mg Nicotine (Nicotine 21 Mg Patch.Td24) 21 mg TRANSDERMA DAILY [facility] Last Admin: 07/06/22 07:54 Dose: 21 mg Ondansetron HCl (Ondansetron Odt 4 Mg Tab.Rapdis) 4 mg TRANSLINGU Q6H PRN PRN Reason: nausea/vomiting Last Admin: 07/01/22 17:22 Dose: 4 mg Trazodone HCl (Trazodone Hcl 50 Mg Tablet) 50 mg PO BEDTIME MRX1 PRN PRN Reason: Insomnia Last Admin: 07/05/22 20:11 Dose: 50 mg Allergies Allergies Allergy/AdvReac Type Severity Reaction Status Date / Time No Known Allergies Allergy Verified 06/29/22 20:24 Assessment & Plan Assessment & Plan (1) Opioid use disorder: Status: Acute Code(s): F11.90 - Opioid use, unspecified, uncomplicated Assessment and Plan: * reminded to utilize PRN comfort medications * methadone increased to 60mg tomorrow AM (07/04) (2) MDD (major depressive disorder), recurrent episode, moderate: Status: Acute Code(s): F33.1 - Major depressive disorder, recurrent, moderate (3) PTSD (post-traumatic stress disorder): Status: Acute Code(s): F43.10 - Post-traumatic stress disorder, unspecified (4) Opioid dependence: Status: Acute Code(s): F11.20 - Opioid dependence, uncomplicated Plan Patient is a 42-year-old male with history of depression, PTSD opioid abuse presents with depression and SI in the face of relational strife and homele ssness. -long history of trauma, complicated by long history of substance abuse and untreated depression and PTSD. Will admit for medication management safety 07/03 still depressed with passive SI but feeling better; still having withdrawal symptoms but will help mitigate with comfort medications; patient more engaged and working to figure out aftercare. 07/04 slowly improving 07/05 patient doing better; depression starting to sonya; no SI; would like to leave Prozac rate is but hopes for increased methadone; discussed case with Carmen Morse addiction documentum consultant who advised getting patient around 75 mg and then letting outpatient providers resume titration 07/06 patient with increased anxiety; not sure if it is from withdrawal given that patient was using much fentanyl. Continue current regimen for now. Reviewed EKG from 07/06 and QTC within normal limits Plan: CV Q 15 minute checks Continue clonidine 0.2mg at 1500 and 2100 Continue Prozac 10 mg daily for PTSD/depression (jingle writer reviewed risks/side effects which patient understood) increase to Methadone 65 mg; will likely titrate further to around 75 mg Continue methadone 5 mg at 14:00 Patient educated on: diagnosis, medication risk/benefits and substance abuse Informed Consent: understands Reason for contiued inpatient stay Substantial Risk for: stable for discharge Time Spent With Patient Time: Total time managing care of this patient today ____ minutes.
[2022-07-06] MEDS: cloNIDine HCL 0.1 MG TABLET PO ×2 (14:30→20:30)
[2022-07-06] MEDS: methADONE HCl 20 MG/2 ML ORAL.CONC 5 MG PO (16:56)
[2022-07-06 18:00] VITALS: BP 111/73; PULSE 76; RESP 18; TEMP 36.1; O2SAT 100
[2022-07-06] MEDS: hydrOXYzine HCL 25 MG TABLET PO (20:31)
[2022-07-06] MEDS: traZODone HCL 50 MG TABLET PO (20:31)
[2022-07-07 06:00] VITALS: BP 118/74; PULSE 72; RESP 18; TEMP 36.8; O2SAT 100
[2022-07-07] MEDS: FLUoxetine HCl 10 MG CAPSULE PO (08:49)
[2022-07-07] MEDS: methADONE HCl 20 MG/2 ML ORAL.CONC 65 MG PO (08:50)
--- NOTE | 2022-07-07 11:31 | P.PNPSI_ITS ---
Subjective Subjective Date of Service: 07/07/22 Reason For Visit: major depression w SI; Opiate use disorder Interim History: Met with patient; discussed with nursing Patient reports that he is feeling better and that withdrawal is much less bothersome. Patient not sure why yesterday was so challenging but feels that he is doing much better now. Feels that anxiety was worse yesterday due to withdrawal and so would like to continue with current medication regimen. Patient continues to attend groups, is engaged in treatment and appropriate with peers and staff. Mental Status Exam Mental Status Exam Narrative: Pt is alert and oriented; behavior is cooperative, friendly, calm; patient is not in distress; dressed in casual attire, clean shaven, adequate hygiene; gerson oed arms; mood is described as better and affect congruent, more calm more engaged; eye contact appropriate; Speech is normal rate, volume and prosody and not pressured; no psychomotor retardation present; thought process is organized and goal directed; Thought content is more hopeful, worried about relapse; tx; otherwise pertinent to relevant topics and without any delusional content, paranoid ideations or grandiosity; no SI; no HI. There is no evidence of perceptual disturbance; denies AVH. Patients insight and judgment are fair. Diagnostics Vital Signs (24Hr): Vital Signs - 24 hr 07/06/22 18:00 07/07/22 06:00 Temperature 96.9 F 98.2 F Pulse Rate 76 72 Respiratory Rate 18 18 Blood Pressure 111/73 118/74 Pulse Oximetry 100 100 Oxygen Delivery Method Room Air Room Air BMI result Body Mass Index 34.4 Labs 06/29/22 21:33 06/29/22 21:33 Medications Medications Current Medications Acetaminophen (Acetaminophen 325 Mg Tablet) 650 mg PO Q6H PRN PRN Reason: Headache/Pain Mild Scale (1-3) Last Admin: 07/02/22 17:13 Dose: 650 mg Al Hydroxide/Mg Hydroxide (Magnesium Hydrox/Alum Hydrox 30 Ml Oral.Susp) 30 ml PO Q6H PRN PRN Reason: Heartburn/Nausea Clonidine HCl (Clonidine Hcl 0.1 Mg Tablet) 0.1 mg PO QID PRN; Protocol PRN Reason: anxiety/insomnia Last Admin: 07/04/22 03:13 Dose: 0.1 mg Clonidine HCl (Clonidine Hcl 0.1 Mg Tablet) 0.1 mg PO BEDTIME [facility]; Protocol Last Admin: 07/06/22 20:30 Dose: 0.1 mg Clonidine HCl (Clonidine Hcl 0.1 Mg Tablet) 0.1 mg PO DAILY@1500 [facility]; Protocol Last Admin: 07/06/22 14:30 Dose: 0.1 mg Cyclobenzaprine HCl (Cyclobenzaprine Hcl 10 Mg Tablet) 10 mg PO TID PRN PRN Reason: muscle aches Dicyclomine HCl (Dicyclomine Hcl 10 Mg Capsule) 10 mg PO Q6H PRN PRN Reason: stomach cramps Fluoxetine HCl (Fluoxetine Hcl 10 Mg Capsule) 10 mg PO DAILY [facility] Last Admin: 07/07/22 08:49 Dose: 10 mg Hydroxyzine HCl (Hydroxyzine Hcl 25 Mg Tablet) 25 mg PO Q6H PRN PRN Reason: Anxiety Last Admin: 07/06/22 20:31 Dose: 25 mg Magnesium Hydroxide (Milk Of Magnesia 30 Ml Oral.Susp) 30 ml PO DAILY PRN PRN Reason: Constipation Methadone HCl (Methadone Hcl 20 Mg/2 Ml Oral.Conc) 5 mg PO DAILY@1700 [facility] Last Admin: 07/06/22 16:56 Dose: 5 mg Methadone HCl (Methadone Hcl 20 Mg/2 Ml Oral.Conc) 65 mg PO DAILY [facility] Last Admin: 07/07/22 08:50 Dose: 65 mg Nicotine (Nicotine 21 Mg Patch.Td24) 21 mg TRANSDERMA DAILY [facility] Last Admin: 07/07/22 08:58 Dose: Not Given Nicotine (Nicotine 21 Mg Patch.Td24) 21 mg TRANSDERMA DAILY PRN PRN Reason: smoking cessation Ondansetron HCl (Ondansetron Odt 4 Mg Tab.Rapdis) 4 mg TRANSLINGU Q6H PRN PRN Reason: nausea/vomiting Last Admin: 07/01/22 17:22 Dose: 4 mg Trazodone HCl (Trazodone Hcl 50 Mg Tablet) 50 mg PO BEDTIME MRX1 PRN PRN Reason: Insomnia Last Admin: 07/06/22 20:31 Dose: 50 mg Allergies Allergies Allergy/AdvReac Type Severity Reaction Status Date / Time No Known Allergies Allergy Verified 06/29/22 20:24 Assessment & Plan Assessment & Plan (1) Opioid use disorder: Status: Acute Code(s): F11.90 - Opioid use, unspecified, uncomplicated Assessment and Plan: * reminded to utilize PRN comfort medications * methadone increased to 60mg tomorrow AM (07/04) (2) MDD (major depressive disorder), recurrent episode, moderate: Status: Acute Code(s): F33.1 - Major depressive disorder, recurrent, moderate (3) PTSD (post-traumatic stress disorder): Status: Acute Code(s): F43.10 - Post-traumatic stress disorder, unspecified (4) Opioid dependence: Status: Acute Code(s): F11.20 - Opioid dependence, uncomplicated Plan Patient is a 42-year-old male with history of depression, PTSD opioid abuse presents with depression and SI in the face of relational strife and homelessness. -long history of trauma, complicated by long history of substance abuse and untreated depression and PTSD. Will admit for medication management safety 07/03 still depressed with passive SI but feeling better; still having withdrawal symptoms but will help mitigate with comfort medications; patient more engaged and working to figure out aftercare. 07/04 slowly improving 07/05 patient doing better; depression starting to sonya; no SI; would like to leave Prozac rate is but hopes for increased methadone; discussed case with Carmen Morse addiction freight traffic consultant who advised getting patient around 75 mg and then letting outpatient providers resume titration 07/06 patient with increased anxiety; not sure if it is from withdrawal given that patient was using much fentanyl. Continue current regimen for now. Reviewed EKG from 07/06 and QTC within normal limits 07/07 continue current treatment plan; patient is stabilizing Plan: CV Q 15 minute checks Continue clonidine 0.2mg at 1500 and 2100 Continue Prozac 10 mg daily for PTSD/depression (film writer reviewed risks/side effects which patient understood) Continue Methadone 65 mg; will likely titrate further to around 75 mg Continue methadone 5 mg at 14:00 Patient educated on: diagnosis, medication risk/benefits and substance abuse Informed Consent: understands Reason for contiued inpatient stay Substantial Risk for: stable for discharge Time Spent With Patient Time: Total time managing care of this patient today ____ minutes.
[2022-07-07] MEDS: Nicotine Polacrilex 2 MG GUM 4 MG BUCCAL (12:04)
[2022-07-07 14:54] VITALS: BP 130/82
[2022-07-07] MEDS: cloNIDine HCL 0.1 MG TABLET PO ×2 (15:10→20:05)
[2022-07-07] MEDS: methADONE HCl 20 MG/2 ML ORAL.CONC 5 MG PO (16:50)
[2022-07-07 18:00] VITALS: BP 135/80; PULSE 65; RESP 18; TEMP 36.6; O2SAT 95
[2022-07-07] MEDS: hydrOXYzine HCL 25 MG TABLET PO (20:05)
[2022-07-07] MEDS: traZODone HCL 50 MG TABLET PO (20:06)
[2022-07-08 08:13] VITALS: BP 111/65; PULSE 66; RESP 16; TEMP 36.6; O2SAT 97
[2022-07-08] MEDS: FLUoxetine HCl 10 MG CAPSULE PO (08:30)
[2022-07-08] MEDS: methADONE HCl 20 MG/2 ML ORAL.CONC 65 MG PO (08:30)
--- NOTE | 2022-07-08 10:25 | P.PNPSI_ITS ---
Subjective Subjective Date of Service: 07/08/22 Reason For Visit: major depression w SI; Opiate use disorder Interim History: Met with patient; discussed with team Patient overall doing better; still anxious and with some depression but feels much more stable. Very anxious about discharge and relapse. Agrees with continue titration of methadone. Would like Prozac to stay the same Mental Status Exam Mental Status Exam Narrative: Pt is alert and oriented; behavior is cooperative, friendly, calm; patient is not in distress; dressed in casual attire, clean shaven, adequate hygiene; tatooed arms; mood is described as ok and affect congruent;eye contact appropriate; Speech is normal rate, volume and prosody and not pressured; no psychomotor retardation present; thought process is organized and goal directed; Thought content is more hopeful, worried about relapse; tx; otherwise pertinent to relevant topics and without any delusional content, paranoid ideations or grandiosity; no SI; no HI. There is no evidence of perceptual disturbance; denies AVH. Patients insight and judgment are fair. Diagnostics Vital Signs (24Hr): Vital Signs - 24 hr 07/07/22 14:54 07/07/22 18:00 07/08/22 08:13 Temperature 98 F 97.9 F Pulse Rate 65 66 Respiratory Rate 18 16 Blood Pressure 130/82 135/80 111/65 Pulse Oximetry 95 97 Oxygen Delivery Method Room Air Room Air BMI result Body Mass Index 34.4 Labs 06/29/22 21:33 06/29/22 21:33 Medications Medications Current Medications Acetaminophen (Acetaminophen 325 Mg Tablet) 650 mg PO Q6H PRN PRN Reason: Headache/Pain Mild Scale (1-3) Last Admin: 07/02/22 17:13 Dose: 650 mg Al Hydroxide/Mg Hydroxide (Magnesium Hydrox/Alum Hydrox 30 Ml Oral.Susp) 30 ml PO Q6H PRN PRN Reason: Heartburn/Nausea Clonidine HCl (Clonidine Hcl 0.1 Mg Tablet) 0.1 mg PO QID PRN; Protocol PRN Reason: anxiety/insomnia Last Admin: 07/04/22 03:13 Dose: 0.1 mg Clonidine HCl (Clonidine Hcl 0.1 Mg Tablet) 0.1 mg PO BEDTIME [facility]; Protocol Last Admin: 07/07/22 20:05 Dose: 0.1 mg Clonidine HCl (Clonidine Hcl 0.1 Mg Tablet) 0.1 mg PO DAILY@1500 [facility]; Protocol Last Admin: 07/07/22 15:10 Dose: 0.1 mg Cyclobenzaprine HCl (Cyclobenzaprine Hcl 10 Mg Tablet) 10 mg PO TID PRN PRN Reason: muscle aches Dicyclomine HCl (Dicyclomine Hcl 10 Mg Capsule) 10 mg PO Q6H PRN PRN Reason: stomach cramps Fluoxetine HCl (Fluoxetine Hcl 10 Mg Capsule) 10 mg PO DAILY [facility] Last Admin: 07/08/22 08:30 Dose: 10 mg Hydroxyzine HCl (Hydroxyzine Hcl 25 Mg Tablet) 25 mg PO Q6H PRN PRN Reason: Anxiety Last Admin: 07/07/22 20:05 Dose: 25 mg Magnesium Hydroxide (Milk Of Magnesia 30 Ml Oral.Susp) 30 ml PO DAILY PRN PRN Reason: Constipation Methadone HCl (Methadone Hcl 20 Mg/2 Ml Oral.Conc) 5 mg PO DAILY@1700 [facility] Last Admin: 07/07/22 16:50 Dose: 5 mg Methadone HCl (Methadone Hcl 20 Mg/2 Ml Oral.Conc) 65 mg PO DAILY [facility] Last Admin: 07/08/22 08:30 Dose: 65 mg Nicotine Polacrilex (Nicotine Polacrilex 2 Mg Gum) 4 mg BUCCAL Q2H PRN PRN Reason: nicotine cravings Last Admin: 07/07/22 12:04 Dose: 4 mg Ondansetron HCl (Ondansetron Odt 4 Mg Tab.Rapdis) 4 mg TRANSLINGU Q6H PRN PRN Reason: nausea/vomiting Last Admin: 07/01/22 17:22 Dose: 4 mg Trazodone HCl (Trazodone Hcl 50 Mg Tablet) 50 mg PO BEDTIME MRX1 PRN PRN Reason: Insomnia Last Admin: 07/07/22 20:06 Dose: 50 mg Allergies Allergies Allergy/AdvReac Type Severity Reaction Status Date / Time No Known Allergies Allergy Verified 06/29/22 20:24 Assessment & Plan Assessment & Plan (1) Opioid use disorder: Status: Acute Code(s): F11.90 - Opioid use, unspecified, uncomplicated Assessment and Plan: * reminded to utilize PRN comfort medications * methadone increased to 60mg tomorrow AM (07/04) (2) MDD (major depressive disorder), recurrent episode, moderate: Status: Acute Code(s): F33.1 - Major depressive disorder, recurrent, moderate (3) PTSD (post-traumatic stress disorder): Status: Acute Code(s): F43.10 - Post-traumatic stress disorder, unspecified (4) Opioid dependence: Status: Acute Code(s): F11.20 - Opioid dependence, uncomplicated Plan Patient is a 42-year-old male with history of depression, PTSD opioid abuse presents with depression and SI in the face of relational strife and homelessness. -long history of trauma, complicated by long history of substance abuse and untreated depression and PTSD. Will admit for medication management safety 07/03 still depressed with passive SI but feeling better; still having withdrawal symptoms but will help mitigate with comfort medications; patient more engaged and working to figure out aftercare. 07/04 slowly improving 07/05 patient doing better; depression starting to sonya; no SI; would like to leave Prozac rate is but hopes for increased methadone; discussed case with Carmen Morse addiction service loss control consultant who advised getting patient around 75 mg and then letting outpatient providers resume titration 07/06 patient with increased anxiety; not sure if it is from withdrawal given that patient was using much fentanyl. Continue current regimen for now. Reviewed EKG from 07/06 and QTC within normal limits 07/07 continue current treatment plan; patient is stabilizing 07/08 increase methadone Plan: CV Q 15 minute checks Continue clonidine 0.2mg at 1500 and 2100 Continue Prozac 10 mg daily for PTSD/depression (proposal writer reviewed risks/side effects which patient understood) Increase to Methadone 70 mg; Continue methadone 5 mg at 14:00 Patient educated on: diagnosis, medication risk/benefits and substance abuse Informed Consent: understands Reason for contiued inpatient stay Substantial Risk for: stable for discharge Time Spent With Patient Time: Total time managing care of this patient today ____ minutes.
[2022-07-08] MEDS: Nicotine Polacrilex 2 MG GUM 4 MG BUCCAL ×3 (12:23→22:38)
[2022-07-08] MEDS: cloNIDine HCL 0.1 MG TABLET PO ×2 (14:53→21:30)
[2022-07-08] MEDS: methADONE HCl 20 MG/2 ML ORAL.CONC 5 MG PO (16:50)
[2022-07-08 18:00] VITALS: BP 123/64; PULSE 71; TEMP 36.4
[2022-07-09 08:23] VITALS: BP 104/59; PULSE 61; RESP 16; TEMP 36.2; O2SAT 97
[2022-07-09] MEDS: FLUoxetine HCl 10 MG CAPSULE PO ×2 (08:41→15:59)
[2022-07-09] MEDS: methADONE HCl 20 MG/2 ML ORAL.CONC 70 MG PO (08:41)
--- NOTE | 2022-07-09 09:52 | P.PNPSI_ITS ---
Subjective Subjective Date of Service: 07/09/22 Reason For Visit: major depression w SI; Opiate use disorder Interim History: met with patient; discussed with team Earlier in the day patient made some vague suicidal comments regarding worries about discharge; however he later shared when [employer] and forensic social worker met with him together, that he was having confused feelings and that this was just set of anxiety. He reports that he is doing better than on admission but that he is still very anxious about discharge and especially about being in a usp; he was able to open up more and realized that he is having flashback type feelings from when he was a teenager and severely bullied at school. Patient able to challenged current perspective, understanding that he has an adult now and has many more options and resources that he did decades ago. Patient says he knows he will be able to get through it and that he will be okay; he denies any SI and says I will be okay... And that It helped to talk about his anxiety and how it related to his history. Further discussed medications and patient agreed to increase Prozac to 20 mg. Mental Status Exam Mental Status Exam Narrative: Pt is alert and oriented; behavior is cooperative, friendly, calm; patient is not in distress; dressed in casual attire, clean shaven, adequate hygiene; tattooed arms; mood is described as anxious and affect congruent;eye contact appropriate; Speech is normal rate, volume and prosody and not pressured; some psychomotor agitation present, pacing halls; thought process is organized and goal directed; Thought content is more worries about discharge, relapse and being in a usp; otherwise pertinent to relevant topics and without any delusional content, paranoid ideations or grandiosity; no SI; no HI. There is no evidence of perceptual disturbance; denies AVH. Patients insight and judgment are fair. Diagnostics Vital Signs (24Hr): Vital Signs - 24 hr 07/08/22 18:00 07/09/22 08:23 Temperature 97.6 F 97.2 F Pulse Rate 71 61 Respiratory Rate 16 Blood Pressure 123/64 104/59 L Pulse Oximetry 97 Oxygen Delivery Method Room Air BMI result Body Mass Index 34.4 Labs 06/29/22 21:33 06/29/22 21:33 Medications Medications Current Medications Acetaminophen (Acetaminophen 325 Mg Tablet) 650 mg PO Q6H PRN PRN Reason: Headache/Pain Mild Scale (1-3) Last Admin: 07/02/22 17:13 Dose: 650 mg Al Hydroxide/Mg Hydroxide (Magnesium Hydrox/Alum Hydrox 30 Ml Oral.Susp) 30 ml PO Q6H PRN PRN Reason: Heartburn/Nausea Clonidine HCl (Clonidine Hcl 0.1 Mg Tablet) 0.1 mg PO QID PRN; Protocol PRN Reason: anxiety/insomnia Last Admin: 07/04/22 03:13 Dose: 0.1 mg Clonidine HCl (Clonidine Hcl 0.1 Mg Tablet) 0.1 mg PO BEDTIME [facility]; Protocol Last Admin: 07/08/22 21:30 Dose: 0.1 mg Clonidine HCl (Clonidine Hcl 0.1 Mg Tablet) 0.1 mg PO DAILY@1500 [facility]; Protocol Last Admin: 07/08/22 14:53 Dose: 0.1 mg Cyclobenzaprine HCl (Cyclobenzaprine Hcl 10 Mg Tablet) 10 mg PO TID PRN PRN Reason: muscle aches Dicyclomine HCl (Dicyclomine Hcl 10 Mg Capsule) 10 mg PO Q6H PRN PRN Reason: stomach cramps Fluoxetine HCl (Fluoxetine Hcl 10 Mg Capsule) 10 mg PO DAILY [facility] Last Admin: 07/09/22 08:41 Dose: 10 mg Hydroxyzine HCl (Hydroxyzine Hcl 25 Mg Tablet) 25 mg PO Q6H PRN PRN Reason: Anxiety Last Admin: 07/07/22 20:05 Dose: 25 mg Magnesium Hydroxide (Milk Of Magnesia 30 Ml Oral.Susp) 30 ml PO DAILY PRN PRN Reason: Constipation Methadone HCl (Methadone Hcl 20 Mg/2 Ml Oral.Conc) 5 mg PO DAILY@1700 [facility] Last Admin: 07/08/22 16:50 Dose: 5 mg Methadone HCl (Methadone Hcl 20 Mg/2 Ml Oral.Conc) 70 mg PO DAILY [facility] Last Admin: 07/09/22 08:41 Dose: 70 mg Nicotine Polacrilex (Nicotine Polacrilex 2 Mg Gum) 4 mg BUCCAL Q2H PRN PRN Reason: nicotine cravings Last Admin: 07/08/22 22:38 Dose: 4 mg Ondansetron HCl (Ondansetron Odt 4 Mg Tab.Rapdis) 4 mg TRANSLINGU Q6H PRN PRN Reason: nausea/vomiting Last Admin: 07/01/22 17:22 Dose: 4 mg Trazodone HCl (Trazodone Hcl 50 Mg Tablet) 50 mg PO BEDTIME MRX1 PRN PRN Reason: Insomnia Last Admin: 07/07/22 20:06 Dose: 50 mg Allergies Allergies Allergy/AdvReac Type Severity Reaction Status Date / Time No Known Allergies Allergy Verified 06/29/22 20:24 Assessment & Plan Assessment & Plan (1) Opioid use disorder: Status: Acute Code(s): F11.90 - Opioid use, unspecified, uncomplicated Assessment and Plan: * reminded to utilize PRN comfort medications * methadone increased to 60mg tomorrow AM (07/04) (2) MDD (major depressive disorder), recurrent episode, moderate: Status: Acute Code(s): F33.1 - Major depressive disorder, recurrent, moderate (3) PTSD (post-traumatic stress disorder): Status: Acute Code(s): F43.10 - Post-traumatic stress disorder, unspecified (4) Opioid dependence: Status: Acute Code(s): F11.20 - Opioid dependence, uncomplicated Plan Patient is a 42-year-old male with history of depression, PTSD opioid abuse presents with depression and SI in the face of relational strife and homelessness. -long history of trauma, complicated by long history of substance abuse and untreated depression and PTSD. Will admit for medication management safety 07/03 still depressed with passive SI but feeling better; still having withdrawal symptoms but will help mitigate with comfort medications; patient more engaged and working to figure out aftercare. 07/04 slowly improving 07/05 patient doing better; depression starting to sonya; no SI; would like to leave Prozac rate is but hopes for increased methadone; discussed case with Carmen Morse addiction labor relations consultant who advised getting patient around 75 mg and then letting outpatient providers resume titration 07/06 patient with increased anxiety; not sure if it is from withdrawal given that patient was using much fentanyl. Continue current regimen for now. Reviewed EKG from 07/06 and QTC within normal limits 07/07 continue current treatment plan; patient is stabilizing 07/08 increase methadone 07/09 patient able to acknowledge history of trauma has been affecting his current feelings and triggering anxiety; working through it well. No SI. Anxious about discharge but feels that he is getting better at being able to cope with it; understands that he will likely have to discharge to a usp since he does not want to return to his home in [place]. Agrees to increase Prozac. Team working to secure access to methadone post discharge. 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
[2022-07-09] MEDS: Nicotine Polacrilex 2 MG GUM 4 MG BUCCAL ×5 (11:19→21:38)
[2022-07-09] MEDS: hydrOXYzine HCL 25 MG TABLET PO (13:26)
[2022-07-09 14:45] VITALS: BP 134/75; PULSE 82; RESP 16; TEMP 37; O2SAT 96
[2022-07-09] MEDS: cloNIDine HCL 0.1 MG TABLET PO ×2 (14:48→21:18)
[2022-07-09] MEDS: methADONE HCl 20 MG/2 ML ORAL.CONC 5 MG PO (17:16)
[2022-07-09 18:00] VITALS: BP 120/76; PULSE 75; RESP 16; TEMP 37; O2SAT 95
[2022-07-09 21:10] VITALS: BP 123/72; PULSE 76; TEMP 36.6
[2022-07-10] MEDS: FLUoxetine HCl 20 MG CAPSULE PO (08:17)
[2022-07-10] MEDS: methADONE HCl 20 MG/2 ML ORAL.CONC 70 MG PO (08:18)
[2022-07-10 08:20] VITALS: BP 113/64; PULSE 60; RESP 18; TEMP 36.4; O2SAT 98
[2022-07-10] MEDS: Nicotine Polacrilex 2 MG GUM 4 MG BUCCAL ×3 (09:32→15:58)
[2022-07-10] MEDS: Magnesium Hydrox/Alum Hydrox 30 ML ORAL.SUSP PO (13:24)
[2022-07-10] MEDS: cloNIDine HCL 0.1 MG TABLET PO (14:39)
[2022-07-10 14:41] VITALS: BP 125/84; PULSE 73
--- NOTE | 2022-07-10 14:48 | HO.PSYCHPN ---
Subjective Subjective Date of Service: 07/10/22 Reason For Visit: major depression w SI; Opiate use disorder Interim History: met w/ patient; discussed in teams pt reports feeling better today and talking yesterday helped. Also says he thinks osbaldo is working since he had a conversation with both his mother and estranged , both of which would normally make him very anxious, and he felt overall more calm, in control. Pt remains anxious about going to long-term but feels more able to handle it. Expressed gratitude for help received. Mental Status Exam Mental Status Exam Narrative: Pt is alert and oriented; behavior is cooperative, friendly, calm; patient is not in distress; dressed in casual attire, clean shaven, adequate hygiene; tattooed arms; mood is described as better and affect congruent;eye contact appropriate; Speech is normal rate, volume and prosody and not pressured; some psychomotor agitation present, pacing halls; thought process is organized and goal directed; Thought content is more worries about discharge, relapse and being in a long-term; otherwise pertinent to relevant topics and without any delusional content, paranoid ideations or grandiosity; no SI; no HI. There is no evidence of perceptual disturbance; denies AVH. Patients insight and judgment are fair. Diagnostics Vital Signs (24Hr): Vital Signs - 24 hr 07/09/22 18:00 07/09/22 21:10 07/10/22 08:20 Temperature 98.6 F 97.9 F 97.6 F Pulse Rate 75 76 60 Respiratory Rate 16 18 Blood Pressure 120/76 123/72 113/64 Pulse Oximetry 95 98 Oxygen Delivery Method Room Air Room Air 07/10/22 14:41 Temperature Pulse Rate 73 Respiratory Rate Blood Pressure 125/84 Pulse Oximetry Oxygen Delivery Method BMI result Body Mass Index 34.4 Labs 06/29/22 21:33 06/29/22 21:33 Medications Medications Current Medications Acetaminophen (Acetaminophen 325 Mg Tablet) 650 mg PO Q6H PRN PRN Reason: Headache/Pain Mild Scale (1-3) Last Admin: 07/02/22 17:13 Dose: 650 mg Al Hydroxide/Mg Hydroxide (Magnesium Hydrox/Alum Hydrox 30 Ml Oral.Susp) 30 ml PO Q6H PRN PRN Reason: Heartburn/Nausea Last Admin: 07/10/22 13:24 Dose: 30 ml Clonidine HCl (Clonidine Hcl 0.1 Mg Tablet) 0.1 mg PO QID PRN; Protocol PRN Reason: anxiety/insomnia Last Admin: 07/04/22 03:13 Dose: 0.1 mg Clonidine HCl (Clonidine Hcl 0.1 Mg Tablet) 0.1 mg PO BEDTIME [facility]; Protocol Last Admin: 07/09/22 21:18 Dose: 0.1 mg Clonidine HCl (Clonidine Hcl 0.1 Mg Tablet) 0.1 mg PO DAILY@1500 [facility]; Protocol Last Admin: 07/10/22 14:39 Dose: 0.1 mg Fluoxetine HCl (Fluoxetine Hcl 20 Mg Capsule) 20 mg PO DAILY [facility] Last Admin: 07/10/22 08:17 Dose: 20 mg Hydroxyzine HCl (Hydroxyzine Hcl 25 Mg Tablet) 25 mg PO Q6H PRN PRN Reason: Anxiety Last Admin: 07/09/22 13:26 Dose: 25 mg Magnesium Hydroxide (Milk Of Magnesia 30 Ml Oral.Susp) 30 ml PO DAILY PRN PRN Reason: Constipation Methadone HCl (Methadone Hcl 20 Mg/2 Ml Oral.Conc) 5 mg PO DAILY@1700 [facility] Last Admin: 07/09/22 17:16 Dose: 5 mg Methadone HCl (Methadone Hcl 20 Mg/2 Ml Oral.Conc) 70 mg PO DAILY [facility] Last Admin: 07/10/22 08:18 Dose: 70 mg Nicotine Polacrilex (Nicotine Polacrilex 2 Mg Gum) 4 mg BUCCAL Q2H PRN PRN Reason: nicotine cravings Last Admin: 07/10/22 13:24 Dose: 4 mg Ondansetron HCl (Ondansetron Odt 4 Mg Tab.Rapdis) 4 mg TRANSLINGU Q6H PRN PRN Reason: nausea/vomiting Last Admin: 07/01/22 17:22 Dose: 4 mg Trazodone HCl (Trazodone Hcl 50 Mg Tablet) 50 mg PO BEDTIME MRX1 PRN PRN Reason: Insomnia Last Admin: 07/07/22 20:06 Dose: 50 mg Allergies Allergies Allergy/AdvReac Type Severity Reaction Status Date / Time No Known Allergies Allergy Verified 06/29/22 20:24 Assessment & Plan Assessment & Plan (1) Opioid use disorder: Status: Acute Code(s): F11.90 - Opioid use, unspecified, uncomplicated Assessment and Plan: reminded to utilize PRN comfort medications methadone increased to 60mg tomorrow AM (07/04) (2) MDD (major depressive disorder), recurrent episode, moderate: Status: Acute Code(s): F33.1 - Major depressive disorder, recurrent, moderate (3) PTSD (post-traumatic stress disorder): Status: Acute Code(s): F43.10 - Post-traumatic stress disorder, unspecified (4) Opioid dependence: Status: Acute Code(s): F11.20 - Opioid dependence, uncomplicated Plan Patient is a 42-year-old male with history of depression, PTSD opioid abuse presents with depression and SI in the face of relational strife and homelessness. -long history of trauma, complicated by long history of substance abuse and untreated depression and PTSD. Will admit for medication management safety 07/03 still depressed with passive SI but feeling better; still having withdrawal symptoms but will help mitigate with comfort medications; patient more engaged and working to figure out aftercare. 07/04 slowly improving 07/05 patient doing better; depression starting to sonya; no SI; would like to leave Prozac rate is but hopes for increased methadone; discussed case with Carmen Morse addiction regional engagement consultant who advised getting patient around 75 mg and then letting outpatient providers resume titration 07/06 patient with increased anxiety; not sure if it is from withdrawal given that patient was using much fentanyl. Continue current regimen for now. Reviewed EKG from 07/06 and QTC within normal limits 07/07 continue current treatment plan; patient is stabilizing 07/08 increase methadone 07/09 patient able to acknowledge history of trauma has been affecting his current feelings and triggering anxiety; working through it well. No SI. Anxious about discharge but feels that he is getting better at being able to cope with it; understands that he will likely have to discharge to a long-term since he does not want to return to his home in [place]. Agrees to increase Prozac. Team working to secure access to methadone post discharge. 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
[2022-07-10 18:00] VITALS: BP 123/65; PULSE 69; RESP 14; TEMP 36.8; O2SAT 98
[2022-07-10] MEDS: methADONE HCl 20 MG/2 ML ORAL.CONC 5 MG PO (18:09)
[2022-07-10] MEDS: Nicotine Polacrilex Lozenge 4 MG LOZENGE BUCCAL ×3 (18:20→22:21)
[2022-07-10] MEDS: traZODone HCL 50 MG TABLET PO (23:41)
[2022-07-11 07:00] VITALS: BMI 36.4
[2022-07-11] MEDS: methADONE HCl 20 MG/2 ML ORAL.CONC 75 MG PO (08:24)
[2022-07-11] MEDS: FLUoxetine HCl 20 MG CAPSULE PO (08:24)
[2022-07-11 09:42] VITALS: BP 126/66; PULSE 76; RESP 16; TEMP 36.6; O2SAT 94
[2022-07-11] MEDS: Nicotine Polacrilex Lozenge 4 MG LOZENGE BUCCAL ×4 (11:00→19:55)
--- NOTE | 2022-07-11 17:47 | HO.PSYCHPN ---
Subjective Subjective Date of Service: 07/11/22 Reason For Visit: major depression w SI; Opiate use disorder Interim History: Met with patient; discussed with team pt reports feeling better; had bout of anxiety but walked it off and says coping skills learned in groups very helpful. relieved to stay on unit a few days longer. Did not sleep as well last night since tried w/ out trazodone and clonidine. Will consider using these if continued insomnia. Mental Status Exam Mental Status Exam Narrative: Pt is alert and oriented; behavior is cooperative, friendly, calm; patient is not in distress; dressed in casual attire, clean shaven, adequate hygiene; tattooed arms; mood is described as better and affect congruent;eye contact appropriate; Speech is normal rate, volume and prosody and not pressured; some psychomotor agitation present, pacing halls; thought process is organized and goal directed; Thought content is more worries about discharge, relapse and being in a chcf; otherwise pertinent to relevant topics and without any delusional content, paranoid ideations or grandiosity; no SI; no HI. There is no evidence of perceptual disturbance; denies AVH. Patients insight and judgment are fair. Diagnostics Vital Signs (24Hr): Vital Signs - 24 hr 07/10/22 18:00 07/11/22 09:42 Temperature 98.3 F 97.9 F Pulse Rate 69 76 Respiratory Rate 14 16 Blood Pressure 123/65 126/66 Pulse Oximetry 98 94 Oxygen Delivery Method Room Air Room Air BMI result Body Mass Index 36.4 Labs 06/29/22 21:33 06/29/22 21:33 Medications Medications Current Medications Acetaminophen (Acetaminophen 325 Mg Tablet) 650 mg PO Q6H PRN PRN Reason: Headache/Pain Mild Scale (1-3) Last Admin: 07/02/22 17:13 Dose: 650 mg Al Hydroxide/Mg Hydroxide (Magnesium Hydrox/Alum Hydrox 30 Ml Oral.Susp) 30 ml PO Q6H PRN PRN Reason: Heartburn/Nausea Last Admin: 07/10/22 13:24 Dose: 30 ml Clonidine HCl (Clonidine Hcl 0.1 Mg Tablet) 0.1 mg PO Q4H PRN; Protocol PRN Reason: anxiety/insomnia Fluoxetine HCl (Fluoxetine Hcl 20 Mg Capsule) 20 mg PO DAILY [facility] Last Admin: 07/11/22 08:24 Dose: 20 mg Hydroxyzine HCl (Hydroxyzine Hcl 25 Mg Tablet) 25 mg PO Q6H PRN PRN Reason: Anxiety Last Admin: 07/09/22 13:26 Dose: 25 mg Magnesium Hydroxide (Milk Of Magnesia 30 Ml Oral.Susp) 30 ml PO DAILY PRN PRN Reason: Constipation Methadone HCl (Methadone Hcl 20 Mg/2 Ml Oral.Conc) 75 mg PO DAILY [facility] Last Admin: 07/11/22 08:24 Dose: 75 mg Nicotine Polacrilex (Nicotine Polacrilex Lozenge 4 Mg Lozenge) 4 mg BUCCAL Q2H PRN PRN Reason: Nicotine Cravings Last Admin: 07/11/22 15:47 Dose: 4 mg Ondansetron HCl (Ondansetron Odt 4 Mg Tab.Rapdis) 4 mg TRANSLINGU Q6H PRN PRN Reason: nausea/vomiting Last Admin: 07/01/22 17:22 Dose: 4 mg Trazodone HCl (Trazodone Hcl 50 Mg Tablet) 50 mg PO BEDTIME MRX1 PRN PRN Reason: Insomnia Last Admin: 07/10/22 23:41 Dose: 50 mg Allergies Allergies Allergy/AdvReac Type Severity Reaction Status Date / Time No Known Allergies Allergy Verified 06/29/22 20:24 Assessment & Plan Assessment & Plan (1) Opioid use disorder: Status: Acute Code(s): F11.90 - Opioid use, unspecified, uncomplicated Assessment and Plan: reminded to utilize PRN comfort medications methadone increased to 60mg tomorrow AM (07/04) (2) MDD (major depressive disorder), recurrent episode, moderate: Status: Acute Code(s): F33.1 - Major depressive disorder, recurrent, moderate (3) PTSD (post-traumatic stress disorder): Status: Acute Code(s): F43.10 - Post-traumatic stress disorder, unspecified (4) Opioid dependence: Status: Acute Code(s): F11.20 - Opioid dependence, uncomplicated Plan Patient is a 42-year-old male with history of depression, PTSD opioid abuse presents with depression and SI in the face of relational strife and homelessness. -long history of trauma, complicated by long history of substance abuse and untreated depression and PTSD. Will admit for medication management safety 07/03 still depressed with passive SI but feeling better; still having withdrawal symptoms but will help mitigate with comfort medications; patient more engaged and working to figure out aftercare. 07/04 slowly improving 07/05 patient doing better; depression starting to sonya; no SI; would like to leave Prozac rate is but hopes for increased methadone; discussed case with Carmen Morse addiction project consultant who advised getting patient around 75 mg and then letting outpatient providers resume titration 07/06 patient with increased anxiety; not sure if it is from withdrawal given that patient was using much fentanyl. Continue current regimen for now. Reviewed EKG from 07/06 and QTC within normal limits 07/07 continue current treatment plan; patient is stabilizing 07/08 increase methadone 07/09 patient able to acknowledge history of trauma has been affecting his current feelings and triggering anxiety; working through it well. No SI. Anxious about discharge but feels that he is getting better at being able to cope with it; understands that he will likely have to discharge to a chcf since he does not want to return to his home in [place]. Agrees to increase Prozac. Team working to secure access to methadone post discharge. 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
[2022-07-11 18:41] VITALS: BP 129/69; PULSE 69
[2022-07-11] MEDS: traZODone HCL 50 MG TABLET PO (21:34)
[2022-07-12] MEDS: FLUoxetine HCl 20 MG CAPSULE PO (08:29)
[2022-07-12] MEDS: methADONE HCl 20 MG/2 ML ORAL.CONC 75 MG PO (08:29)
[2022-07-12 09:02] VITALS: BP 138/83; PULSE 76; RESP 18; TEMP 36.4; O2SAT 96
[2022-07-12] MEDS: Nicotine Polacrilex Lozenge 4 MG LOZENGE BUCCAL ×3 (11:26→21:34)
--- NOTE | 2022-07-12 13:35 | P.PNPSI_ITS ---
Subjective Subjective Date of Service: 07/12/22 Reason For Visit: major depression w SI; Opiate use disorder Subjective Notes: Conditional Voluntary Interim History: Pt reports feeling better today. he denies SI/HI. He reports feeling more depressed. He is hopeful he can get back to time when he was stable on recovery. He asks for higher dose of methadone, informed that may need to wait for outpatient. Per nursing, not behavioral concerns, taking medications as prescribed. Review of Systems Review of Systems Constitutional: No Fever, No Chills Cardiovascular: No Chest Pain, No SOB Respiratory: No Cough, No Sputum, No Dyspnea Gastrointestinal: No Nausea, No Vomiting, No Diarrhea Genitourinary: No Dysuria, No Urinary Frequency, No Hematuria Musculoskeletal: No Myalgias Skin: No Skin Lesions, No rash Neuro: No Weakness, No Numbness, No Paresthesias, No Dizziness, No Headache Psych: positive Anxiety, positive Depression, positive SI, positive substance abuse Heme/Lymph: No Lymphadenopathy Endocrine: No Polyuria, No Polydipsia Yes all other systems are reviewed and are negative Constitutional: Reports as per HPI, Reports body ache(s), Reports difficulty sleeping and Reports malaise Mental Status Exam Mental Status Exam Narrative: Pt is alert and oriented; behavior is cooperative, friendly, calm; patient is not in distress; dressed in casual attire, clean shaven, adequate hygiene; tattooed arms; mood is described as better and affect congruent;eye contact appropriate; Speech is normal rate, volume and prosody and not pressured; some psychomotor agitation present, pacing halls; thought process is organized and goal directed; Thought content is more worries about discharge, relapse and being in a senior living; otherwise pertinent to relevant topics and without any delusional content, paranoid ideations or grandiosity; no SI; no HI. There is no evidence of perceptual disturbance; denies AVH. Patients insight and judgment are fair. Diagnostics Vital Signs (24Hr): Vital Signs - 24 hr 07/11/22 18:41 07/12/22 09:02 Temperature 97.6 F Pulse Rate 69 76 Respiratory Rate 18 Blood Pressure 129/69 138/83 Pulse Oximetry 96 Oxygen Delivery Method Room Air BMI result Body Mass Index 36.4 Labs 06/29/22 21:33 06/29/22 21:33 Medications Medications Current Medications Acetaminophen (Acetaminophen 325 Mg Tablet) 650 mg PO Q6H PRN PRN Reason: Headache/Pain Mild Scale (1-3) Last Admin: 07/02/22 17:13 Dose: 650 mg Al Hydroxide/Mg Hydroxide (Magnesium Hydrox/Alum Hydrox 30 Ml Oral.Susp) 30 ml PO Q6H PRN PRN Reason: Heartburn/Nausea Last Admin: 07/10/22 13:24 Dose: 30 ml Clonidine HCl (Clonidine Hcl 0.1 Mg Tablet) 0.1 mg PO Q4H PRN; Protocol PRN Reason: anxiety/insomnia Fluoxetine HCl (Fluoxetine Hcl 20 Mg Capsule) 20 mg PO DAILY [facility] Last Admin: 07/12/22 08:29 Dose: 20 mg Hydroxyzine HCl (Hydroxyzine Hcl 25 Mg Tablet) 25 mg PO Q6H PRN PRN Reason: Anxiety Last Admin: 07/09/22 13:26 Dose: 25 mg Magnesium Hydroxide (Milk Of Magnesia 30 Ml Oral.Susp) 30 ml PO DAILY PRN PRN Reason: Constipation Methadone HCl (Methadone Hcl 20 Mg/2 Ml Oral.Conc) 75 mg PO DAILY [facility] Last Admin: 07/12/22 08:29 Dose: 75 mg Nicotine Polacrilex (Nicotine Polacrilex Lozenge 4 Mg Lozenge) 4 mg BUCCAL Q2H PRN PRN Reason: Nicotine Cravings Last Admin: 07/12/22 13:59 Dose: 4 mg Ondansetron HCl (Ondansetron Odt 4 Mg Tab.Rapdis) 4 mg TRANSLINGU Q6H PRN PRN Reason: nausea/vomiting Last Admin: 07/01/22 17:22 Dose: 4 mg Trazodone HCl (Trazodone Hcl 50 Mg Tablet) 50 mg PO BEDTIME MRX1 PRN PRN Reason: Insomnia Last Admin: 07/11/22 21:34 Dose: 50 mg Allergies Allergies Allergy/AdvReac Type Severity Reaction Status Date / Time No Known Allergies Allergy Verified 06/29/22 20:24 Assessment & Plan Assessment & Plan (1) MDD (major depressive disorder), recurrent episode, moderate: Status: Acute Code(s): F33.1 - Major depressive disorder, recurrent, moderate (2) Opioid use disorder: Status: Acute Code(s): F11.90 - Opioid use, unspecified, uncomplicated Assessment and Plan: * reminded to utilize PRN comfort medications * methadone increased to 60mg tomorrow AM (07/04) (3) PTSD (post-traumatic stress disorder): Status: Acute Code(s): F43.10 - Post-traumatic stress disorder, unspecified (4) Opioid dependence: Status: Acute Code(s): F11.20 - Opioid dependence, uncomplicated Plan Patient is a 42-year-old male with history of depression, PTSD opioid abuse presents with depression and SI in the face of relational strife and homelessness. -long history of trauma, complicated by long history of substance abuse and untreated depression and PTSD. Will admit for medication management safety 07/03 still depressed with passive SI but feeling better; still having withdrawal symptoms but will help mitigate with comfort medications; patient more engaged and working to figure out aftercare. 07/04 slowly improving 07/05 patient doing better; depression starting to sonya; no SI; would like to leave Prozac rate is but hopes for increased methadone; discussed case with Carmen Morse addiction alliances consultant who advised getting patient around 75 mg and then letting outpatient providers resume titration 07/06 patient with increased anxiety; not sure if it is from withdrawal given tulio t patient was using much fentanyl. Continue current regimen for now. Reviewed EKG from 07/06 and QTC within normal limits 07/07 continue current treatment plan; patient is stabilizing 07/08 increase methadone 07/09 patient able to acknowledge history of trauma has been affecting his current feelings and triggering anxiety; working through it well. No SI. Anxious about discharge but feels that he is getting better at being able to cope with it; understands that he will likely have to discharge to a senior living since he does not want to return to his home in [place]. Agrees to increase Prozac. Team working to secure access to methadone post discharge. 07/01 doing well; dc postponed tomake sure pt will have access to methadone and perscriptions and follow up apts 07/12 continue tx. Plan: CV Q 15 minute checks Continue clonidine at 1500 and 2100 Increase to Prozac 20 mg daily for PTSD/depression (sql report writer reviewed risks/side effects which patient understood) Increase to Methadone 70 mg; Continue methadone 5 mg at 14:00 Reason for contiued inpatient stay Substantial Risk for: stable for discharge Time Spent With Patient Time: Total time managing care of this patient today ____ minutes.
[2022-07-12 18:00] VITALS: BP 128/74; PULSE 92; RESP 16; TEMP 36.6; O2SAT 98
[2022-07-12] MEDS: traZODone HCL 50 MG TABLET PO (22:35)
[2022-07-13] MEDS: FLUoxetine HCl 20 MG CAPSULE PO (08:23)
[2022-07-13] MEDS: methADONE HCl 20 MG/2 ML ORAL.CONC 75 MG PO (08:23)
[2022-07-13 08:39] VITALS: BP 126/70; PULSE 73; RESP 18; TEMP 36.4; O2SAT 97
[2022-07-13] MEDS: Nicotine Polacrilex Lozenge 4 MG LOZENGE BUCCAL ×4 (10:08→23:10)
[2022-07-13] MEDS: Magnesium Hydrox/Alum Hydrox 30 ML ORAL.SUSP PO (10:09)
--- NOTE | 2022-07-13 16:12 | P.PNPSI_ITS ---
Subjective Subjective Date of Service: 07/13/22 Reason For Visit: major depression w SI; Opiate use disorder Subjective Notes: Conditional Voluntary Medical Problems Affecting Mental Status: No Interim History: met with patient. Discussed with Nursing. Overall patient reports having some anxiety but no clear reasons why. Is starting to feel slightly less depressed and less anxious compared to when he was 1st removed. Tolerating Prozac and hopeful that this will continue to help his mood. Some sadness that he will not be seeing his family in [place] in the context of going to a senior care after discharge and then a longer-term substance treatment program. Overall however hopeful. Medication Compliance: Yes Side effects from medications: No Attending Groups: Yes Review of Systems Acute medical concerns: No Review of Systems Review of Systems Yes all other systems are reviewed and are negative Mental Status Exam Mental Status Exam Narrative: Pleasant. Engaged. Appropriately presented. Some anxiety and depression. No SI. No HI. No agitation. No psychosis. Insight and judgment good Diagnostics Vital Signs (24Hr): Vital Signs - 24 hr 07/12/22 18:00 07/13/22 08:39 Temperature 97.8 F 97.6 F Pulse Rate 92 73 Respiratory Rate 16 18 Blood Pressure 128/74 126/70 Pulse Oximetry 98 97 Oxygen Delivery Method Room Air Room Air BMI result Body Mass Index 36.4 Labs 06/29/22 21:33 06/29/22 21:33 Medications Medications Current Medications Acetaminophen (Acetaminophen 325 Mg Tablet) 650 mg PO Q6H PRN PRN Reason: Headache/Pain Mild Scale (1-3) Last Admin: 07/02/22 17:13 Dose: 650 mg Al Hydroxide/Mg Hydroxide (Magnesium Hydrox/Alum Hydrox 30 Ml Oral.Susp) 30 ml PO Q6H PRN PRN Reason: Heartburn/Nausea Last Admin: 07/13/22 10:09 Dose: 30 ml Clonidine HCl (Clonidine Hcl 0.1 Mg Tablet) 0.1 mg PO Q4H PRN; Protocol PRN Reason: anxiety/insomnia Fluoxetine HCl (Fluoxetine Hcl 20 Mg Capsule) 20 mg PO DAILY [facility] Last Admin: 07/13/22 08:23 Dose: 20 mg Hydroxyzine HCl (Hydroxyzine Hcl 25 Mg Tablet) 25 mg PO Q6H PRN PRN Reason: Anxiety Last Admin: 07/09/22 13:26 Dose: 25 mg Magnesium Hydroxide (Milk Of Magnesia 30 Ml Oral.Susp) 30 ml PO DAILY PRN PRN Reason: Constipation Methadone HCl (Methadone Hcl 20 Mg/2 Ml Oral.Conc) 75 mg PO DAILY [facility] Last Admin: 07/13/22 08:23 Dose: 75 mg Nicotine Polacrilex (Nicotine Polacrilex Lozenge 4 Mg Lozenge) 4 mg BUCCAL Q2H PRN PRN Reason: Nicotine Cravings Last Admin: 07/13/22 13:38 Dose: 4 mg Ondansetron HCl (Ondansetron Odt 4 Mg Tab.Rapdis) 4 mg TRANSLINGU Q6H PRN PRN Reason: nausea/vomiting Last Admin: 07/01/22 17:22 Dose: 4 mg Trazodone HCl (Trazodone Hcl 50 Mg Tablet) 50 mg PO BEDTIME MRX1 PRN PRN Reason: Insomnia Last Admin: 07/12/22 22:35 Dose: 50 mg Allergies Allergies Allergy/AdvReac Type Severity Reaction Status Date / Time No Known Allergies Allergy Verified 06/29/22 20:24 Assessment & Plan Assessment & Plan (1) MDD (major depressive disorder), recurrent episode, moderate: Status: Acute Code(s): F33.1 - Major depressive disorder, recurrent, moderate (2) Opioid use disorder: Status: Acute Code(s): F11.90 - Opioid use, unspecified, uncomplicated Assessment and Plan: * reminded to utilize PRN comfort medications * methadone increased to 60mg tomorrow AM (07/04) (3) PTSD (post-traumatic stress disorder): Status: Acute Code(s): F43.10 - Post-traumatic stress disorder, unspecified (4) Opioid dependence: Status: Acute Code(s): F11.20 - Opioid dependence, uncomplicated Plan Patient is a 42-year-old male with history of depression, PTSD opioid abuse presents with depression and SI in the face of relational strife and homelessness. -long history of trauma, complicated by long history of substance abuse and untreated depression and PTSD. Will admit for medication management safety 07/03 still depressed with passive SI but feeling better; still having withdrawal symptoms but will help mitigate with comfort medications; patient more engaged and working to figure out aftercare. 07/04 slowly improving 07/05 patient doing better; depression starting to sonya; no SI; would like to leave Prozac rate is but hopes for increased methadone; discussed case with Carmen Morse addiction speech correction consultant who advised getting patient around 75 mg and then letting outpatient providers resume titration 07/06 patient with increased anxiety; not sure if it is from withdrawal given that patient was using much fentanyl. Continue current regimen for now. Reviewed EKG from 07/06 and QTC within normal limits 07/07 continue current treatment plan; patient is stabilizing 07/08 increase methadone 07/09 patient able to acknowledge history of trauma has been affecting his current feelings and triggering anxiety; working through it well. No SI. Anxious about discharge but feels that he is getting better at being able to cope with it; understands that he will likely have to discharge to a senior care since he does not want to return to his home in [place]. Agrees to increase Prozac. Team working to secure access to methadone post discharge. 07/01 doing well; dc postponed tomake sure pt will have access to methadone and perscriptions and follow up apts 07/13 continue tx. Plan: CV Q 15 minute checks Continue clonidine at 1500 and 2100 Increase to Prozac 20 mg daily for PTSD/depression (documentation writer reviewed risks/side effects which patient understood) Increase to Methadone 70 mg; Continue methadone 5 mg at 14:00 Reason for contiued inpatient stay Substantial Risk for: rapid decompensation Time Spent With Patient Time: Total time managing care of this patient today ____ minutes.
[2022-07-13] MEDS: traZODone HCL 50 MG TABLET PO ×2 (22:01→23:08)
[2022-07-14] MEDS: FLUoxetine HCl 20 MG CAPSULE PO (08:28)
[2022-07-14] MEDS: methADONE HCl 20 MG/2 ML ORAL.CONC 75 MG PO (08:28)
[2022-07-14 09:10] VITALS: BP 174/71; PULSE 61; RESP 14; TEMP 36.5; O2SAT 99
[2022-07-14] MEDS: Nicotine Polacrilex Lozenge 4 MG LOZENGE BUCCAL ×4 (09:11→23:19)
--- NOTE | 2022-07-14 11:08 | P.PNPSI_ITS ---
Subjective Subjective Date of Service: 07/14/22 Reason For Visit: major depression w SI; Opiate use disorder Subjective Notes: Conditional Voluntary Interim History: met with patient. Discussed with Nursing. Overall patient reports having some anxiety primarily around disposition and maintaining stability after discharge. Also described unit as being tense at times. Is starting to feel slightly less depressed and less anxious compared to when he was initially admitted. Tolerating Prozac and hopeful that this will continue to help his mood. Overall hopeful. We discussed supports after discharge and he is concerned around care home placement, substance use programming after this remaining sober in between. Did discuss potential for respite services and he will speak with primary team regarding this tomorrow. Also reinforced ultimate goal is stabil ity so he can return to seeing his family in [place]. Medication Compliance: Yes Side effects from medications: No Attending Groups: Yes Review of Systems Acute medical concerns: No Review of Systems Review of Systems Yes all other systems are reviewed and are negative Mental Status Exam Mental Status Exam Narrative: Pleasant. Engaged. Appropriately presented. Some anxiety and depression. No SI. No HI. No agitation. No psychosis. Insight and judgment good Diagnostics Vital Signs (24Hr): Vital Signs - 24 hr 07/14/22 09:10 Temperature 97.7 F Pulse Rate 61 Respiratory Rate 14 Blood Pressure 174/71 H Pulse Oximetry 99 Oxygen Delivery Method Room Air BMI result Body Mass Index 36.4 Labs 06/29/22 21:33 06/29/22 21:33 Medications Medications Current Medications Acetaminophen (Acetaminophen 325 Mg Tablet) 650 mg PO Q6H PRN PRN Reason: Headache/Pain Mild Scale (1-3) Last Admin: 07/02/22 17:13 Dose: 650 mg Al Hydroxide/Mg Hydroxide (Magnesium Hydrox/Alum Hydrox 30 Ml Oral.Susp) 30 ml PO Q6H PRN PRN Reason: Heartburn/Nausea Last Admin: 07/13/22 10:09 Dose: 30 ml Clonidine HCl (Clonidine Hcl 0.1 Mg Tablet) 0.1 mg PO Q4H PRN; Protocol PRN Reason: anxiety/insomnia Fluoxetine HCl (Fluoxetine Hcl 20 Mg Capsule) 20 mg PO DAILY [facility] Last Admin: 07/14/22 08:28 Dose: 20 mg Hydroxyzine HCl (Hydroxyzine Hcl 25 Mg Tablet) 25 mg PO Q6H PRN PRN Reason: Anxiety Last Admin: 07/09/22 13:26 Dose: 25 mg Magnesium Hydroxide (Milk Of Magnesia 30 Ml Oral.Susp) 30 ml PO DAILY PRN PRN Reason: Constipation Methadone HCl (Methadone Hcl 20 Mg/2 Ml Oral.Conc) 75 mg PO DAILY [facility] Last Admin: 07/14/22 08:28 Dose: 75 mg Nicotine Polacrilex (Nicotine Polacrilex Lozenge 4 Mg Lozenge) 4 mg BUCCAL Q2H PRN PRN Reason: Nicotine Cravings Last Admin: 07/14/22 09:11 Dose: 4 mg Ondansetron HCl (Ondansetron Odt 4 Mg Tab.Rapdis) 4 mg TRANSLINGU Q6H PRN PRN Reason: nausea/vomiting Last Admin: 07/01/22 17:22 Dose: 4 mg Trazodone HCl (Trazodone Hcl 50 Mg Tablet) 50 mg PO BEDTIME MRX1 PRN PRN Reason: Insomnia Last Admin: 07/13/22 23:08 Dose: 50 mg Allergies Allergies Allergy/AdvReac Type Severity Reaction Status Date / Time No Known Allergies Allergy Verified 06/29/22 20:24 Assessment & Plan Assessment & Plan (1) MDD (major depressive disorder), recurrent episode, moderate: Status: Acute Code(s): F33.1 - Major depressive disorder, recurrent, moderate (2) Opioid use disorder: Status: Acute Code(s): F11.90 - Opioid use, unspecified, uncomplicated Assessment and Plan: * reminded to utilize PRN comfort medications * methadone increased to 60mg tomorrow AM (07/04) (3) PTSD (post-traumatic stress disorder): Status: Acute Code(s): F43.10 - Post-traumatic stress disorder, unspecified (4) Opioid dependence: Status: Acute Code(s): F11.20 - Opioid dependence, uncomplicated Plan Patient is a 42-year-old male with history of depression, PTSD opioid abuse presents with depression and SI in the face of relational strife and homelessness. -long history of trauma, complicated by long history of substance abuse and untreated depression and PTSD. Will admit for medication management safety 07/03 still depressed with passive SI but feeling better; still having withdrawal symptoms but will help mitigate with comfort medications; patient more engaged and working to figure out aftercare. 07/04 slowly improving 07/05 patient doing better; depression starting to sonya; no SI; would like to leave Prozac rate is but hopes for increased methadone; discussed case with Carmen Morse addiction [facility] consultant who advised getting patient around 75 mg and then letting outpatient providers resume titration 07/06 patient with increased anxiety; not sure if it is from withdrawal given that patient was using much fentanyl. Continue current regimen for now. Reviewed EKG from 07/06 and QTC within normal limits 07/07 continue current treatment plan; patient is stabilizing 07/08 increase methadone 07/09 patient able to acknowledge history of trauma has been affecting his current feelings and triggering anxiety; working through it well. No SI. Anxious about discharge but feels that he is getting better at being able to cope with it; understands that he will likely have to discharge to a care home since he does not want to return to his home in [place]. Agrees to [place]. Team working to secure access to methadone post discharge. 07/01 doing well; dc postponed tomake sure pt will have access to methadone and perscriptions and follow up apts 07/14 continue tx. Plan: CV Q 15 minute checks Continue clonidine at 1500 and 2100 Increase to Prozac 20 mg daily for PTSD/depression (remote mortgage underwriter reviewed risks/side effects which patient understood) Increase to Methadone 70 mg; Continue methadone 5 mg at 14:00 Reason for contiued inpatient stay Substantial Risk for: rapid decompensation Time Spent With Patient Time: Total time managing care of this patient today ____ minutes.
[2022-07-14 14:30] VITALS: BP 116/65; PULSE 61
--- NOTE | 2022-07-14 14:48 | PC.NURSE ---
Patient said that he had had difficulty with sleep last night. BP this a.m. was 174/74 with HR of 74. Patient said he has just been anxious and thinking about discharge. Rechecked BP at 1430 and BP was 116/65 with HR OF 61.
[2022-07-14 17:51] VITALS: BP 130/65; PULSE 71
[2022-07-15] MEDS: methADONE HCl 20 MG/2 ML ORAL.CONC 75 MG PO (08:26)
[2022-07-15] MEDS: FLUoxetine HCl 20 MG CAPSULE PO (08:26)
[2022-07-15 09:20] VITALS: BP 136/90; PULSE 82; RESP 18; TEMP 36.7; O2SAT 98
--- NOTE | 2022-07-15 10:52 | PM.PSYDC ---
DS: Providers Provider Date of Service: 07/15/22 Date of admission: 07/01/22 15:33 Date of discharge: 07/15/22 Primary care physician: Unknown Physician Attending physician on admission: Cassius Pablo Consults: 07/01/22 17:13 Addiction Medicine Routine Consulting Provider: Addiction Covering Reason for consultation: Fentanyl Dependence Has provider been notified: No Attending physician on discharge: Cassius Pablo DS: Diagnosis Discharge Diagnosis (1) MDD (major depressive disorder), recurrent episode, moderate: Status: Acute (2) Opioid use disorder: Status: Acute (3) PTSD (post-traumatic stress disorder): Status: Acute (4) Opioid dependence: Status: Acute DS: Medications Discharge Medications Home Medications: Previous Rx's Medication Instructions Recorded fluoxetine 20 mg capsule 20 mg PO DAILY 30 days #30 caps 07/15/22 hydroxyzine HCl 25 mg tablet 25 mg PO Q6H PRN Anxiety 30 days 07/15/22 #90 tabs methadone 10 mg/mL oral 75 mg (7.5 mL) PO DAILY #0 mL 07/15/22 concentrate (Methadose) nicotine (polacrilex) 4 mg buccal 4 mg buccal Q2H PRN Nicotine 07/15/22 lozenge Cravings 30 days #81 ea trazodone 50 mg tablet 50 mg PO BEDTIME PRN Insomnia 30 07/15/22 days #30 tabs Mental Status Exam Mental Status Exam Narrative: Pt is alert and oriented; behavior is cooperative, friendly, calm; patient is not in distress; dressed in casual attire, clean shaven, adequate hygiene; tattooed arms; mood is described as ok and affect congruent;eye contact appropriate; Speech is normal rate, volume and prosody and not pressured; some psychomotor agitation present, pacing halls; thought process is organized and goal directed; Thought content is more worries about discharge, relapse and being in a group home; otherwise pertinent to relevant topics and without any delusional content, paranoid ideations or grandiosity; no SI; no HI. There is no evidence of perceptual disturbance; denies AVH. Patients insight and judgment are fair. DS: Summary Hospital Course Hospital Course: Patient is a 42-year-old male with history of depression, PTSD opioid abuse presents with depression and SI in the face of relational strife and homelessness. -long history of trauma, complicated by long history of substance abuse and untreated depression and PTSD.? Will admit for medication management safety Hospital course: On admission patient was depressed with passive SI but overall feeling better. Patient had some prolonged withdrawal symptoms which were well treated with methadone which was titrated. Patient was willing to start Prozac for anxiety, depression and PTSD which was titrated to 20 mg with good effect. Patient's depression abated SI fully resolved. Anxiety still came and went but patient reported it was significantly improved. Over the course of his stay, patient was appropriate with peers and staff; he was engaged in treatment, attending groups and demonstrated good behavioral and impulse control. Patient very much wanted to get into a CSS program here in [place]. Patient is currently a resident in [place] and was transitioning to [facility] which made placement difficult; patient understood that this difficulty might result in him being discharged to a group home however he decided this was preferable to returning to [place], saying he just wanted space from his family and so it could work on his sobriety feeling unencumbered. As discharge approached, Patient remained with good mood, no SI and anxiety significantly reduced. He was future oriented and optimistic about staying sober; he felt confident he could reach out for help if he again became unsafe. While patient of course remains vulnerable to relapse and mood dysregulation, he was not in imminent risk for harm to self or others and appropriate to continue treatment in the community. Time spent discussing smoking cessation with patient: 3 to 10 minutes Status at Discharge Functional status at discharge: independent ambulation Overall status at discharge: patient is back to baseline Time Spent with Patient Time attestation: Total time managing care of this patient today ____ minutes. Time spent: Less than 30 minutes Discharge Plan Discharge Anticipated Discharge Date/Time: 07/15/22 12:00 Patient Disposition: Senior Living Discharge Diagnosis: MDD, recurrent, severe in full remission Referrals: [facility] [Other] - 1 Week (Referral for Substance use treatment at [facility] program Patient should follow-up on referral after discharge ) [facility] [Other] - 1 Week (Referral to [facility] for substance use treatment Patient should follow-up on referral after discharge ) [facility] [Other] - 1 Week (Referral to [facility] in [place], [place] for substance use treatment Patient should follow-up on referral after discharge ) [facility] Living [facility] [Other] - 1 Week ([facility] Living room resource to support in follow-up on referrals for substance use treatment and connecting with other community resources ) [facility] [Other] - 1 Week (Referral for Senior Living placement Patient should arrive for 3:00 pm to obtain group home placement.) [facility] [Other] - 1 Week (Senior Living resource) [facility] OT Clinic: [facility] (Methadone) [Other] - 07/16/22 7:00 am ([facility]ethadone Clinic Clinic Hours Friday - Friday: 5:30 am - 1:30 pm Dosing Hours Friday - Friday: 5:45 am - 12:00 pm Friday - Friday: 7:00 am - 12:00 pm) [facility] [Other] - 1 Week (Walk in clinic available for urgent care) Discharge Medications: New fluoxetine 20 mg Capsule 20 mg PO DAILY 30 Days Qty: 30 1RF trazodone 50 mg Tablet 50 mg PO BEDTIME PRN (Reason: Insomnia) 30 Days Qty: 30 1RF methadone [Methadose] 10 mg/mL Concentrate 75 mg PO DAILY Qty: 0 0RF Rx Instructions: Partial Fill upon patient request. hydroxyzine HCl 25 mg Tablet 25 mg PO Q6H PRN (Reason: Anxiety) 30 Days Qty: 90 1RF nicotine (polacrilex) 4 mg Lozenge 4 mg buccal Q2H PRN (Reason: Nicotine Cravings) 30 Days Qty: 81 0RF Discharge Orders: Discharge Order (Routine); Ordered 07/15/22 Ordered By: Cassius Pablo Diet: Regular diet Activity on Discharge: As tolerated Stand Alone Forms: Patient Portal Discharge page, Community Support Care Plan Goals: Maintain mood and safe behaviors Take medications as prescribed Continue to pursue sobriety Practice coping skills Continue with outpatient providers and reach out to them as needed Health Concerns: Mood stability and behaviors Sobriety Plan of Treatment: Follow up with your PCP, psychiatric provider and other outpatient providers regarding above concerns Take medications as prescribed Assessment: Risk assessment at time of discharge:? Patient was interviewed prior to discharge and found to be fully oriented and without any SI or HI. Patient has insight and demonstrates good judgment in terms of wanting to pursue treatment. Patient is not in imminent risk of harm to self or others and has a safety plan that includes presenting to the closest ER or calling 911 if feeling unsafe.? Patient has been observed closely by nursing and unit staff throughout admission; patient has not engaged in any behaviors that suggest dangerousness to self or others and has demonstrated appropriate behaviors and impulse control Discharge Date/Time: 07/15/22 12:24
[2022-07-15] MEDS: Nicotine Polacrilex Lozenge 4 MG LOZENGE BUCCAL (11:24)
[2022-07-15] MEDS: Naloxone HCl Nasal TAKE HOME 4 MG SPRAY NOSTRILALT (11:24)
== END 2022-07-15 12:24 | disposition home or self-care (01) | DRG 751 ==
LOC: HO.ED 07-01 07:41 → HO.PM5 07-01 15:39
PROVIDERS: Admitting Provider Clinical Nurse Specialist Psychiatric/Mental Health, Adult; Emergency Provider Emergency Medicine Emergency Medical Services; Visit Provider Psychiatry & Neurology Psychiatry
DX: F33.1 Major depressive disorder, recurrent, moderate (principal); R45.851 Suicidal ideations; F43.10 Post-traumatic stress disorder, unspecified; F11.20 Opioid dependence, uncomplicated; F17.210 Nicotine dependence, cigarettes, uncomplicated; Z71.6 Tobacco abuse counseling; Z59.02 Unsheltered homelessness; Z20.822 Contact with and (suspected) exposure to COVID-19; Z79.899 Other long term (current) drug therapy
CPT/HCPCS: 36415; 80053; 80061; 80307; 81003; 82077; 82607; 82746; 83036; 83735; 84439; 84443; 85025; 87635; 93005; 99285; S9485